=== PATIENT | male | born 1955 | race Caucasian/White ===

== ENCOUNTER → 2021-06-15 02:36 | Outpatient (CLI) | payer OTHER, SELFPAY ==
[2021-06-15 20:05] LABS: SARS-CoV-2 RNA PCR Negative
== END ==
PROVIDERS: PCP Family Medicine; Visit Provider Orthopaedic Surgery
DX: Z01.812 Encounter for preprocedural laboratory examination (principal); Z20.822 Contact with and (suspected) exposure to COVID-19
CPT/HCPCS: C9803; U0003; U0005

== ENCOUNTER 2021-06-15 09:12 | Outpatient (CLI) | payer OTHER, SELFPAY ==
--- NOTE | 2021-06-15 09:15 | ECG_ITS ---
Measurements Intervals [place] Rate: 61 P: 38 NE: 172 QRS: 46 QRSD: 100 T: 21 QT: 423 QTc: 427 Interpretive Statements SINUS RHYTHM DELAYED PRECORDIAL R/S TRANSITION BORDERLINE T WAVE ABNORMALITY- INFERIOR LEADS BASELINE ARTIFACT- I, II, III, AVR, AVL, AVF, V6 BORDERLINE ECG Electronically Signed On 06-15-2021 10:39:05 DIRECTOR ZONE by Garrett Castro D.O.
[2021-06-15 10:02] LABS: Hemoglobin A1C 7.2 % (<5.7)
[2021-06-15 10:07] LABS: Anion Gap 10 mmol/L (8-16); Blood Urea Nitrogen 18 mg/dL (9-20); Carbon Dioxide 27 mmol/L (22-30); Chloride 100 mmol/L (98-107); Estimated Glomerular Filt Rate > 60; Glucose 146 mg/dL (65-110); Sodium 137 mmol/L (137-145)
== END 2021-06-15 09:13 | disposition home or self-care (01) ==
LOC: ANHSURGERY 09:15
PROVIDERS: Anesthesiology; PCP Family Medicine; Visit Provider Orthopaedic Surgery
DX: E11.9 Type 2 diabetes mellitus without complications (principal); I10 Essential (primary) hypertension; R94.31 Abnormal electrocardiogram [ECG] [EKG]
CPT/HCPCS: 36415; 80048; 83036; 93005

== ENCOUNTER 2021-06-18 01:13 | Day surgery (SDC) | payer OTHER, SELFPAY ==
[2021-06-08 11:47] VITALS: BMI 28.6
--- NOTE | 2021-06-08 12:01 | PC.NURSE ---
Report to the Outpatient Waiting Room, entrance under the green pavilion located off [facility], at time 7:30 on date 06/18/21. OR Time: 9:30. - You and your visitor will be asked a series of questions to screen for COVID 19 for your protection. - A mask is required within the hospital. - Only one visitor is allowed at this time. Patient visitors will be guided where to wait when not with patient. Preoperative COVID Testing Requirements: No COVID Test needed if: (proof is required; if not received patient will have Rapid Test prior to entry) - Patient has received COVID Vaccine at least 14 days prior to procedure date or - Patient has positive COVID test result within last 90 days of surgery date. COVID Test needed if above criteria is not met If not COVID vaccinated a COVID test must be conducted within 72 hours of surgery and patient is asked to isolate self from time of testing until procedure. You will go to the [employer] [facility] for your COVID testing. The [employer] [facility] is located at the corner of [address] [facility]. COVID TEST 06/15 AT 9:00 You will only be called if COVID results are positive and your surgeon may reschedule your elective surgery date. Patients may have clear liquids (water, carbonated beverages, clear teas, apple juice) until 3 hours prior to surgery with a maximum of 20 ounces. - No food from midnight until time of surgery - Infants may have breast milk until 4 hours before surgery, formula 6 hours prior to surgery. - Children will be allowed to drink immediately following surgery. If applicable, please bring a bottle or sippy cup to assist with drinking. Juice, water, soda, and popsicles are readily available. For infants on formula, please bring formula the day of surgery. Pacifiers are allowed. Take the following medications with a SIP of water the morning of surgery: AMLODIPINE Medications to discontinue per physician: VITAMINS/SUPPLEMENTS Date to take last dose: 06/14/[address] POWELL Please no make-up, nail peruvian, hairspray, perfume, deodorant, or body powder the day of surgery. No jewelry (including any body piercings) or valuables the day of surgery, leave them at home. Please take a shower or bath the night before, or the morning of, surgery with an antibacterial soap. Wear comfortable, loose fitting clothing. Children are encouraged to wear pajamas. - Jewelry must be removed prior to entering the operating room. Rings and piercings that are not removed may be cut off. - The hospital will not accept responsibility for valuables. - Please leave all valuables, including medications, at home the day of surgery. If you are going home after surgery, a licensed party bus driver must drive you home. - NO public transportation without another adult. - We recommend that an adult stay with you for 24 hours following discharge. - We also recommend that you do not drive, make important decision, drink alcoholic beverages, or take any drugs that were not prescribed by your health care provider for at least 24 hours after your discharge time. For Pediatric surgeries, we recommend two adults accompany the child home (only one inside the building at this time). Follow any additional instructions given to you from your surgeon. Telephone instructions given to JEFFERY BRANDON and asked if any additional questions and then verbalized understanding. Patient advised to call surgeon office or pre surgery nurse liaison [phone] if any additional questions.
[2021-06-18] VITALS (7 sets, daily range): BP systolic 123–152; BP diastolic 79–91; PULSE 68–85; RESP 10–18; TEMP 36.1–36.3; O2SAT 93–100
--- NOTE | ~2021-06-18 | XR_ITS ---
EXAMINATION: XR surgery orthopedic DATE: 06/18/2021 14:19 INDICATION: Right foot arthrodesis TECHNIQUE: 2 views of the right ankle and hindfoot were obtained in dorsal plantar and lateral projec tions during procedure performed by Dr. Early. Radiologist was not present for the imaging or proce dure. The amount of fluoroscopy time used during this procedure was 1.1 minutes. COMPARISON: 06/09/2021 FINDINGS: Realignment osteotomy at the posterior calcaneus fixed with a pair of cannulated compression screws. Additional osteotomies in the midfoot which appear to involve the bones on either side of the navicul ocuneiform joint and across the cuboid. Midfoot arthrodesis with additional compression screws spanni ng the talonavicular and medial naviculocuneiform joints . Additional compression screw spanning the cuboid osteotomy. Alignment appears near-anatomic. No fractures identified. Osteoarthritis with mild nonuniform joint space narrowing at the ankle and subtalar joints. IMPRESSION: 1. Fluoroscopy utilized during orthopedic procedure at the right mid and hindfoot as detailed above. Correlate with procedure note for further detail. Reviewed, dictated and finalized at location A. ICAL ETCHING PROCESSOR IMPRESSION: 1. Fluoroscopy utilized during orthopedic procedure at the right mid and hindfo ot as detailed above. Correlate with procedure note for further detail.
--- NOTE | 2021-06-18 06:47 | WPDHPUPDATE1 ---
History and Physical Update Update Date/Time: 06/18/21 06:47 History and Physical has been reviewed, including an updated exam of the patient. There are NO changes in the patient's condition. Risks, benefits, and alternatives have been discussed and questions answered. Patient agrees to proceed with procedure.
[2021-06-18] MEDS: LACTATED RINGERS 1,000 ML 30 ML IV CONT ×3 (10:50→14:45)
[2021-06-18] MEDS: KETOROLAC 15 MG/ML VIAL (*BKC) IV PUSH (10:56)
[2021-06-18] MEDS: ACETAMINOPHEN 500 MG TABLET 1000 MG PO (10:57)
[2021-06-18 10:59] LABS: Glucose Point of Care 144 mg/dl (65-105)
--- NOTE | 2021-06-18 11:05 | WPDANESEPPF ---
Anes - Initial Pre Proc Eval Procedure: Operation Date: 06/18/21 12:00 Proposed Procedures p Right Midfoot Osteotomy with Arthrodesis, with Calcaneal Osteotomy - Jr Early MD Date/Time: 06/18/21 11:05 Surgeon: Jr Early MD Pre Op Diagnosis: right charcot foot,pes planus, valgus Patient Data Age: 65 Gender: M Height: 1.91 m Weight: 104 kg Allergies Allergy/AdvReac Type Severity Reaction Status Date / Time No Known Allergies Allergy Verified 06/18/21 11:06 Home Medications Medication Instructions Recorded Confirmed Type amlodipine 5 mg tablet 5 mg PO DAILY 03/05/21 06/08/21 History atorvastatin 10 mg tablet 10 mg PO DAILY 03/05/21 06/08/21 History calcium carbonate 500 mg calcium 500 mg PO DAILY 03/05/21 06/08/21 History (1,250 mg) tablet cholecalciferol (vitamin D3) 50 100 mcg PO DAILY cap 03/05/21 06/08/21 History mcg (2,000 unit) capsule dulaglutide 3 mg/0.5 mL 3 mg SUBCUT WEEKLY 03/05/21 06/08/21 History subcutaneous pen injector empagliflozin 25 mg tablet 25 mg PO DAILY 03/05/21 06/08/21 History losartan 100 mg tablet 100 mg PO DAILY 03/05/21 06/08/21 History meloxicam 7.5 mg tablet 7.5 mg PO DAILY PRN tablet 03/05/21 06/08/21 History metformin 1,000 mg tablet 500 mg PO DAILY 03/05/21 06/08/21 History multivitamin 1 tablet PO DAILY 03/05/21 06/08/21 History tadalafil 5 mg tablet 5 mg PO DAILY 03/05/21 06/08/21 History zinc 50 mg tablet 50 mg PO DAILY 03/05/21 06/08/21 History magnesium 100 mg PO DAILY 06/08/21 06/08/21 History omega-3 fatty acids-vitamin E 1 cap PO DAILY 06/08/21 06/08/21 History [Fish Oil] Laboratory Tests 06/18/21 10:53 POC Capillary Glucose 144 mg/dl H mg/dl (65-105) Patient hx anesthesia problems: none Family hx anesthesia problems: none Results Review: All pre-operative results and documents have been reviewed as part of the pre-operative evaluation. [facility] Past Medical History Medical History Charcot arthropathy of midfoot Diabetes Hyperlipidemia Hypertension Peripheral autonomic neuropathy due to diabetes mellitus Type 2 diabetes mellitus with peripheral neuropathy Surgical History Surgical History H/O shoulder surgery Left shoulder 2019 by Jossue Garcia History of colonoscopy 1999, 2004, [address] Jose Martin Azevedo History of foot operation Left Hammertoe 2009 Left Metatarsal 2013 Left bunionectomy 2014 Right foot 2016, [address] Michael May History of hernia surgery 1977, 1986, [address] Dr[address] Chand History of knee surgery Right knee 1984, 1998, 2004, 2008, [address] Stef Osorio History of knee surgery Left knee 2005, 2008, [address] J[address] Coburn and Dr[address] Stef Osorio Family History Family History Other Diabetes mellitus Social History Social History Smoking status: Never smoker Alcohol intake: never Substance use: never Substance use type: does not use Living arrangements: with family Gender identity (if verbalized by the patient): Male Spiritual care concerns: No Anes - Eval Final PreProcedure Day of Procedure 06/18/21 11:05 Patient weight: overweight Heart: regular rate and rhythm Lungs: clear to auscultation Airway: Mallampati scale class II Neurological: alert and oriented Last oral intake: >/= 8 hours ASA classification: III Emergent: no Anesthetic plan: proceed Anesthesia type and monitoring: general LMA and standard monitoring Results Review: All pre-operative results and documents have been reviewed as part of the pre-operative evaluation. Informed Consent: The patient's anesthetic plan and its attendant risks and benefits were discussed with the patient/family/POA. Questions were solicited and answers provided to
[2021-06-18] MEDS: ceFAZolin 2 GM/D5W 50 ML 2 GM/50 ML BAG IVPB (11:17)
--- NOTE | 2021-06-18 11:46 | WPDANESPNB ---
Anes - Peripheral Nerve Block Date/Time: 06/18/21 11:46 I have discussed with the patient/family/POA the placement of a peripheral nerve block for post-operative pain management, including associated risks, benefits, complications, and side effects. Alternative methods of post-operative analgesia were detailed. Questions were solicited and answers provided to the satisfaction of the patient/family/POA. Time-Out: A pre-procedural Time-Out was completed immediately before starting the procedure and confirmed: Patient Identification, Site, Procedure, Patient Position and the Availability of Requisite Equipment. Clinical Indications: Acute post-operative pain management requested by the operative surgeon. Nerve Block Insertion Note Anes-nerve block: infraclavicular, posterior fossa sciatic right and other (Saphenous right) Patient position: supine Skin prep: chlorhexidine Needle: 22 gauge, stimulating, insulated echogenic needle. Needle length: 80 mm Technique: nerve stimulation lost at (mA) Technique comment: mid 2mg fent 100mcg Injectate: bupivacaine 0.5% with epi 5 mcg/ml (20/10ml no epi) Observations: tolerated well Complications: none Procedure start time:: 111 Procedure end time:: 1115
[2021-06-18 14:50] LABS: Glucose Point of Care 173 mg/dl (65-105)
--- NOTE | 2021-06-18 14:54 | W.PM.PROC2 ---
Procedure Note - Detailed Date of Procedure 06/18/21 Pre-op Diagnosis right charcot foot,pes planus, valgus Post-op Diagnosis same Procedure Performed Right foot calcaneal osteotomy, midfoot multiple joint transverse arthrodesis. Surgeon Jr Early MD Shiftman administrative assistant office manager Anesthesia general Indications 65-year-old gentleman with right Charcot midfoot which is caused collapse of the arch and pes planovalgus deformity. Patient has pain and inability to shoe wear. Presents now for operative treatment. Description of Procedure What was done: Patient identified in the preoperative holding. Informed consent given. Operative extremity marked. Patient received intravenous antibiotics. Patient brought to the operating room where underwent general anesthetic by anesthesia team. Positioned supine on operating room table. Time-out performed confirming the patient, site of the surgery and the plan. Right foot prepped draped usual sterile surgical fashion using ChloraPrep skin solution. Foot ankle exsanguinated and a thigh tourniquet was inflated to 225 mmHg. Fluoroscopy was used to help guide the placement of the incision over the lateral posterior calcaneal tuberosity. Fifteen blade knife used to make an oblique incision. Sensory all months identified and protected. Dissection carried down the lateral aspect of the calcaneus. Osteotomy then performed from lateral to medial with a sagittal saw and completed with an osteotome. The posterior fragment was then translated medially proximally 11 mm in provisionally pinned. Image intensification continued realignment good fixation achieved with a 5.0 mm cannulated screw x2. Wound irrigated and closed with 3-0 Monocryl interrupted suture and 4-0 nylon running suture. The midfoot was then addressed. A medial longitudinal incision was made over the medial navicular an with a 15 blade knife. Soft tissue was then elevated off the medial cuneiform on the medial aspect. Tibialis anterior is protected. Soft tissue was then elevated dorsally and plantar wart. Longitudinal incision was made on the lateral aspect of the midfoot with 15 blade knife. Dissection carried down lateral side of the cuboid. Guide pins were then placed and verified with fluoroscopy to map out our osteotomy across the navicular cuneiform joints into the cuboid. Sagittal saw then used to make this osteotomy with correction of the abduction of the foot and planus. The medial aspect was then closed down both medially and plantar word. This was provisionally pinned and checked with image intensification. Fixation achieved with the 5.0 mm cannulated screws. Good fixation noted. Wound thoroughly irrigated. The tibialis anterior was reinforced with a 2.0 mm fiber tack in the navicula. Wounds thoroughly irrigated and closed with 2-0 Vicryl interrupted suture. 3-0 Monocryl interrupted suture for the subcutaneous tissue and 4-0 nylon running suture for the skin. Sterile dressing applied. The patient was then woken from anesthesia, extubated and taken to the recovery room in stable condition. All sponge, needle, instrument counts were correct at the end of the case. Implants Arthrex 5.0 mm cannulated screws x5 Estimated Blood Loss -5.0 Tourniquet Time 163 Urine Output -200.0 Drains No Packing No Pathology none sent Complications None Condition stable Disposition PACU
== END 2021-06-18 16:30 | disposition home or self-care (01) ==
PROVIDERS: PCP Family Medicine; Visit Provider Orthopaedic Surgery
PROC: (CPT 28750; principal; 2021-06-18 12:00)
DX: E11.610 Type 2 diabetes mellitus with diabetic neuropathic arthropathy (principal); M79.671 Pain in right foot; E11.42 Type 2 diabetes mellitus with diabetic polyneuropathy; M21.41 Flat foot [pes planus] (acquired), right foot; M21.071 Valgus deformity, not elsewhere classified, right ankle; I10 Essential (primary) hypertension; E78.5 Hyperlipidemia, unspecified; Z79.899 Other long term (current) drug therapy; Z79.84 Long term (current) use of oral hypoglycemic drugs
CPT/HCPCS: 28300; 28730; 36415; 80048; 82948; 83036; 93005; A9270; C1713; C9803; J0690; J1100; J1885; J2250; J2405; J2704; J3010; J7120; U0003; U0005

== ENCOUNTER → 2021-08-21 03:15 | Outpatient (CLI) | payer OTHER, SELFPAY ==
[2021-08-21 11:39] LABS: SARS-CoV-2 RNA PCR Negative
== END ==
PROVIDERS: PCP Family Medicine; Visit Provider Orthopaedic Surgery
DX: Z01.812 Encounter for preprocedural laboratory examination (principal); Z20.822 Contact with and (suspected) exposure to COVID-19
CPT/HCPCS: C9803; U0003; U0005

== ENCOUNTER 2021-08-24 00:33 | Day surgery (SDC) | payer OTHER, SELFPAY ==
[2021-08-18 10:30] VITALS: BMI 28.3
--- NOTE | 2021-08-18 10:37 | PC.NURSE ---
Report to the Outpatient Waiting Room, entrance under the green pavilion located off [facility], at time 0700 on date 08/24/21. OR Time: 0900. - You will be asked a series of questions to screen for COVID 19 for your protection. - A mask is required within the hospital. - No visitors are allowed at this time. Preoperative COVID Testing Requirements: COVID TEST 2/ AT 0930 No COVID Test needed if: (proof is required; if not received patient will have Rapid Test prior to entry) - Patient has received COVID Vaccine at least 14 days prior to procedure date or - Patient has positive COVID test result within last 90 days of surgery date. COVID Test needed if above criteria is not met If not COVID vaccinated a COVID test must be conducted within 72 hours of surgery and patient is asked to isolate self from time of testing until procedure. You will go to the [facility] for your COVID testing. The [facility] is located at the corner of [address] from [facility]. You will only be called if COVID results are positive and your surgeon may reschedule your elective surgery date. Patients may have clear liquids (water, carbonated beverages, clear teas, apple juice) until 3 hours prior to surgery with a maximum of 20 ounces. - No food from midnight until time of surgery Take the following medications with a SIP of water the morning of surgery: AMLODIPINE, CEPHALEXIN Medications to discontinue per physician: VITAMINS/SUPPLEMENTS Date to take last dose: 08/20/21 Please no make-up, nail indian, hairspray, perfume, deodorant, or body powder the day of surgery. No jewelry (including any body piercings) or valuables the day of surgery, leave them at home. Please take a shower or bath the night before, or the morning of, surgery with an antibacterial soap. Wear comfortable, loose fitting clothing. - Jewelry must be removed prior to entering the operating room. Rings and piercings that are not removed may be cut off. - The hospital will not accept responsibility for valuables. - Please leave all valuables, including medications, at home the day of surgery. If you are going home after surgery, a licensed transporter driver must drive you home. - NO public transportation without another adult. - We recommend that an adult stay with you for 24 hours following discharge. - We also recommend that you do not drive, make important decision, drink alcoholic beverages, or take any drugs that were not prescribed by your health care provider for at least 24 hours after your discharge time. Follow any additional instructions given to you from your surgeon. Telephone instructions given to JEFFERY BRANDON and asked if any additional questions and then verbalized understanding. Patient advised to call surgeon office or pre surgery nurse liaison [phone] if any additional questions.
[2021-08-24] VITALS (8 sets, daily range): BP systolic 108–125; BP diastolic 69–83; PULSE 58–99; RESP 10–16; TEMP 35.2–36.7; O2SAT 95–100
--- NOTE | ~2021-08-24 | XR_ITS ---
EXAMINATION: XR surgery orthopedic EXAM DATE: 08/24/2021 09:56 INDICATION: Right Foot Surgery Implant Graft And New Hardware . TECHNIQUE: Fluoroscopy used during right foot surgery performed by Dr. Jr Early MD. Radiol ogist was not present for the imaging or procedure. Total fluoroscopic time of 1 minute. The DAP fo r this procedure was 12 cGycm2. A total of 4 images sent to PACS from the exam. FINDINGS: Images demonstrate advanced mid foot arthritic change, 2 intact-like screws bridging tarsa l bones and metatarsophalangeal joint. Portions of 2 other screws visualized. Correlate with procedu re note. IMPRESSION: Fluoroscopy used during right foot surgery. Reviewed, dictated and finalized at location B. LEAD
--- NOTE | 2021-08-24 07:07 | WPDHPUPDATE1 ---
History and Physical Update Update Date/Time: 08/24/21 07:07 History and Physical has been reviewed, including an updated exam of the patient. There are NO changes in the patient's condition. Risks, benefits, and alternatives have been discussed and questions answered. Patient agrees to proceed with procedure.
--- NOTE | 2021-08-24 08:11 | WPDANESEPPF ---
Anes - Initial Pre Proc Eval Procedure: Operation Date: 08/24/21 09:00 Proposed Procedures p Debridement Right Foot, Graft Application, - Jr Early MD s Possible Hardware Removal Right Foot - Jr Early MD Date/Time: 08/24/21 08:11 Surgeon: Jr Early MD Pre Op Diagnosis: right diabetic ulcer Patient Data Age: 65 Gender: M Height: 1.91 m Weight: 103 kg Allergies Allergy/AdvReac Type Severity Reaction Status Date / Time No Known Allergies Allergy Verified 08/18/21 10:28 Home Medications Medication Instructions Recorded Confirmed Type amlodipine 5 mg tablet 5 mg PO DAILY 03/05/21 08/18/21 History atorvastatin 10 mg tablet 10 mg PO DAILY 03/05/21 08/18/21 History cholecalciferol (vitamin D3) 50 100 mcg PO DAILY cap 03/05/21 08/18/21 History mcg (2,000 unit) capsule dulaglutide 3 mg/0.5 mL 3 mg SUBCUT WEEKLY 03/05/21 08/18/21 History subcutaneous pen injector empagliflozin 25 mg tablet 25 mg PO DAILY 03/05/21 08/18/21 History losartan 100 mg tablet 100 mg PO DAILY 03/05/21 08/18/21 History meloxicam 7.5 mg tablet 7.5 mg PO DAILY PRN tablet 03/05/21 08/18/21 History metformin 1,000 mg tablet 500 mg PO DAILY 03/05/21 08/18/21 History multivitamin 1 tablet PO DAILY 03/05/21 08/18/21 History tadalafil 5 mg tablet 5 mg PO DAILY 03/05/21 08/18/21 History zinc 50 mg tablet 50 mg PO DAILY 03/05/21 08/18/21 History omega-3 fatty acids-vitamin E 1 cap PO DAILY 06/08/21 08/18/21 History collagenase clostridium histo. 250 1 applic TOPICAL DAILY #30 g 08/10/21 08/18/21 Rx unit/gram topical ointment silver 32 PPM topical gel 1 applic TOPICAL DAILY #28.35 g 08/10/21 08/18/21 Rx cephalexin 500 mg tablet 500 mg PO Q8H 10 Days #30 tablet 08/18/21 Rx Patient hx anesthesia problems: none Family hx anesthesia problems: none Results Review: All pre-operative results and documents have been reviewed as part of the pre-operative evaluation. [facility] Past Medical History Medical History Charcot arthropathy of midfoot Diabetes Encounter for postoperative care Hyperlipidemia Hypertension Peripheral autonomic neuropathy due to diabetes mellitus Type 2 diabetes mellitus with peripheral neuropathy Wound dehiscence, surgical Surgical History Surgical History H/O shoulder surgery Left shoulder 2019 by Jossue Garcia History of colonoscopy 1999, 2004, [address] Jose Martin Azevedo History of foot operation Left Hammertoe 2009 Left Metatarsal 2013 Left bunionectomy 2014 Right foot 2016, [address] Michael May History of hernia surgery 1977, 1986, [address] Dr[address] Chand History of knee surgery Right knee 1984, 1998, 2004, 2008, [address] Stef Osorio History of knee surgery Left knee 2005, 2008, [address] Jd Coburn and Dr[address] Stef Osorio Family History Family History Other Diabetes mellitus Social History Social History Smoking status: Never smoker Alcohol intake: never Substance use: never Substance use type: does not use Living arrangements: with family Gender identity (if verbalized by the patient): Male Spiritual care concerns: No Anes - Eval Final PreProcedure Day of Procedure 08/24/21 08:11 Patient weight: overweight Lungs: clear to auscultation Airway: Mallampati scale class II Neurological: alert and oriented Last oral intake: >/= 8 hours ASA classification: III Emergent: no Anesthetic plan: proceed Anesthesia type and monitoring: general LMA and standard monitoring Results Review: All pre-operative results and documents have been reviewed as part of the pre-operative evaluation. Informed Consent: The patient's anesthetic plan and its attendant risks and benefits were discussed with the patient/family/POA. Questions we
[2021-08-24] MEDS: KETOROLAC 15 MG/ML VIAL (*BKC) IV PUSH (08:15)
[2021-08-24] MEDS: LACTATED RINGERS 1,000 ML 30 ML IV CONT ×2 (08:15→10:20)
[2021-08-24] MEDS: ACETAMINOPHEN 500 MG TABLET 1000 MG PO (08:15)
[2021-08-24] MEDS: ceFAZolin 2 GM/D5W 50 ML 2 GM/50 ML BAG IVPB (08:28)
[2021-08-24 08:32] LABS: Glucose Point of Care 243 mg/dl (65-105)
[2021-08-24] MEDS: BUPIVACAINE HCL 0.5% PF 30 ML VIAL INFILTRATE (09:07)
[2021-08-24 10:30] LABS: Glucose Point of Care 219 mg/dl (65-105)
--- NOTE | 2021-08-24 10:36 | P.OP_ITS ---
Procedure Note - Detailed Date of Procedure 08/24/21 Pre-op Diagnosis right diabetic ulcer, postoperative wound dehiscence, midfoot arthrodesis nonunion, failed hardware. Post-op Diagnosis same Procedure Performed Debridement of right foot including muscle, 10 sq cm. Removal of deep hardware. Revision midfoot arthrodesis nonunion, application of graft. Surgeon Jr Early MD Board Winder assistant casino shift manager Anesthesia general Indications 65-year-old gentleman with diabetes and peripheral neuropathy who underwent a right midfoot arthrodesis. Procedure complicated by postoperative wound eschar now dehiscence. No drainage from the medial wound and nonhealing lateral wound. Patient presents for operative treatment of his wound dehiscence as he has failed conservative treatment with local wound care, wound packing and dressing changes. 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 Loss of fixation of the internal hardware on the medial side. 5 cm x 1 cm wound dehiscence medially. 4 cm x 1 cm wound dehiscence laterally. Description of Procedure Patient identified in the preoperative holding. Informed consent given. Operative extremity marked. Patient received intravenous antibiotics. Patient brought to the operating room where underwent general anesthetic by anesthesia team. Positioned supine on operating room table. Time-out performed confirming the patient, site of the surgery and the plan. Right foot prepped and draped usual sterile surgical fashion using ChloraPrep skin solution. Foot and Ankle exsanguinated and a calf tourniquet was inflated to 225 mmHg. Fifteen blade knife used to debride the medial wound including skin, subcutaneous tissue and muscle. All devitalized tissue sharply excised and passed off. Debridement pro ceeded to viable wound edges with good bleeding. Wound thoroughly irrigated with antibiotic solution. The medial aspect of the arthrodesis was then inspected. There was noted to be nonhealing of the bone as well as screws which were loose and broken. The screws from the medial aspect were removed. Bone was debrided with a rongeur and curettes. Thorough irrigation with antibiotic solution. Repeat fixation then performed with 4.5 mm cannulated screws. Two screws placed and verified with image intensification. Wound thoroughly irrigated once again and wound graft then applied. The deep wo und was covered with a 4 x 4 cm amniotic placental graft. This was then covered with 1 g of micro matrix particulate. The loose portions of the wound were then closed with 2 0 Prolene interrupted suture. The open proximal portion was then covered with the meshed bilayer wound matrix which was sutured into place with 3-0 Monocryl interrupted suture. Lateral wound then debrided with 15 blade knife. Skin, subcutaneous tissue and muscle sharply debrided and passed off. Good viable wound edges ensured. Wound thoroughly irrigated with antibiotic solution. The amniotic graft placed 1st followed by the micro matrix particulate. Wound covering performed with the bilayer wound matrix secured with 3-0 Monocryl interrupted suture. Sterile dressing applied. Total contact cast then applied. The patient was then woken from anesthesia, extubated and taken to the recovery room in stable condition. All sponge, needle, instrument counts were correct at the end of the case. Implants Arthrex 4.5 mm cannulated screw x2 Amnioexcel plus 4X5cm ID [id number] Micromatrix Lot [id number] Bilayer Lot [id number] Estimated Blood Loss 10 Tourniquet Time 70 Drains No Packing No Pathology none sent Complications None Condition stable Disposition
[2021-08-24] MEDS: fentaNYL CITRATE INJ (*CRX) 100 MCG/2 ML VIAL 25 MCG IV PUSH (10:40)
[2021-08-24] MEDS: oxyCODONE HCL (*CRX) 5 MG TAB IR PO (11:53)
== END 2021-08-24 12:35 | disposition home or self-care (01) ==
PROVIDERS: PCP Family Medicine; Visit Provider Orthopaedic Surgery
PROC: (CPT 11043; principal; 2021-08-24 09:00)
PROC: (CPT 11043; 2021-08-24 09:00)
DX: T81.31XA Disruption of external operation (surgical) wound, not elsewhere classified, initial encounter (principal); M96.0 Pseudarthrosis after fusion or arthrodesis; E11.621 Type 2 diabetes mellitus with foot ulcer; T84.117A Breakdown (mechanical) of internal fixation device of bone of left lower leg, initial encounter; L97.419 Non-pressure chronic ulcer of right heel and midfoot with unspecified severity; E11.610 Type 2 diabetes mellitus with diabetic neuropathic arthropathy; E11.42 Type 2 diabetes mellitus with diabetic polyneuropathy; Y83.8 Other surgical procedures as the cause of abnormal reaction of the patient, or of later complication, without mention of misadventure at the time of the procedure; E78.5 Hyperlipidemia, unspecified; I10 Essential (primary) hypertension; Z79.84 Long term (current) use of oral hypoglycemic drugs
CPT/HCPCS: 11043; 28730; 15275; 82948; A9270; C1713; C1769; C9363; C9803; J0690; J1030; J1885; J2250; J2405; J2704; J3010; J7120; Q4118; U0003; U0005

== ENCOUNTER → 2021-09-22 09:31 | Outpatient (CLI) | payer OTHER, SELFPAY ==
[2021-09-22 11:06] LABS: SARS-CoV-2 RNA PCR Negative
== END ==
PROVIDERS: PCP Family Medicine; Visit Provider Orthopaedic Surgery
DX: Z01.812 Encounter for preprocedural laboratory examination (principal); Z20.822 Contact with and (suspected) exposure to COVID-19
CPT/HCPCS: C9803; U0003; U0005

== ENCOUNTER 2021-09-24 02:09 | Day surgery (SDC) | payer OTHER, SELFPAY ==
[2021-09-22 11:27] VITALS: BMI 28.6
--- NOTE | 2021-09-22 11:39 | PC.NURSE ---
Report to the Outpatient Waiting Room, entrance under the green pavilion located off [facility], at time 0900 on date 09/24/21. OR Time: 1100. - You and your visitor will be asked a series of questions to screen for COVID 19 for your protection. - A mask is required within the hospital. One visitor will be allowed to accompany the patient into the hospital. Patients visitor will be instructed to remain with patient at all times or leave the building. We will allow the visitor to come back to the postoperative area when patient is ready. Preoperative COVID Testing Requirements: COVID TEST 09/22 AT 9:45 No COVID Test needed if: (proof is required; if not received patient will have Rapid Test prior to entry) - Patient has received COVID Vaccine at least 14 days prior to procedure date or - Patient has positive COVID test result within last 90 days of surgery date. COVID Test needed if above criteria is not met If not COVID vaccinated a COVID test must be conducted within 72 hours of surgery and patient is asked to isolate self from time of testing until procedure. You will go to the [facility] for your COVID testing. The [facility] site is located at the corner of [address] [facility]. You will only be called if COVID results are positive and your surgeon may reschedule your elective surgery date. Patients may have clear liquids (water, carbonated beverages, clear teas, apple juice) until 3 hours prior to surgery with a maximum of 20 ounces. - No food from midnight until time of surgery Take the following medications with a SIP of water the morning of surgery: AMLODIPINE, CEPHALEXIN Medications to discontinue per physician: VITAMINS/SUPPLEMENTS Date to take last dose: NO MORE UNTIL AFTER SURGERY Please no make-up, nail azeri, hairspray, perfume, deodorant, or body powder the day of surgery. No jewelry (including any body piercings) or valuables the day of surgery, leave them at home. Please take a shower or bath the night before, or the morning of, surgery with an antibacterial soap. Wear comfortable, loose fitting clothing. - Jewelry must be removed prior to entering the operating room. Rings and piercings that are not removed may be cut off. - The hospital will not accept responsibility for valuables. - Please leave all valuables, including medications, at home the day of surgery. If you are going home after surgery, a licensed local [place] truck driver must drive you home. - NO public transportation without another adult. - We recommend that an adult stay with you for 24 hours following discharge. - We also recommend that you do not drive, make important decision, drink alcoholic beverages, or take any drugs that were not prescribed by your health care provider for at least 24 hours after your discharge time. Follow any additional instructions given to you from your surgeon. Telephone instructions given to JEFFERY BRANDON and asked if any additional questions and then verbalized understanding. Patient advised to call surgeon office or pre surgery nurse liaison [phone] if any additional questions.
--- NOTE | 2021-09-23 12:42 | WPDANESEPPF ---
Anes - Initial Pre Proc Eval Procedure: Operation Date: 09/24/21 11:00 Proposed Procedures p Right Foot Debridement with Graft Application - Jr Early MD Date/Time: 09/23/21 12:42 Surgeon: Jr Early MD Pre Op Diagnosis: right foot wound dehiscence Patient Data Age: 65 Gender: M Height: 1.91 m Weight: 104 kg Allergies Allergy/AdvReac Type Severity Reaction Status Date / Time No Known Allergies Allergy Verified 09/22/21 11:25 Home Medications Medication Instructions Recorded Confirmed Type amlodipine 5 mg tablet 5 mg PO DAILY 03/05/21 09/22/21 History atorvastatin 10 mg tablet 10 mg PO DAILY 03/05/21 09/22/21 History cholecalciferol (vitamin D3) 50 100 mcg PO DAILY cap 03/05/21 09/22/21 History mcg (2,000 unit) capsule dulaglutide 3 mg/0.5 mL 3 mg SUBCUT WEEKLY 03/05/21 09/22/21 History subcutaneous pen injector empagliflozin 25 mg tablet 25 mg PO DAILY 03/05/21 09/22/21 History losartan 100 mg tablet 100 mg PO DAILY 03/05/21 09/22/21 History meloxicam 7.5 mg tablet 7.5 mg PO DAILY PRN tablet 03/05/21 09/22/21 History metformin 1,000 mg tablet 500 mg PO DAILY 03/05/21 09/22/21 History multivitamin 1 tablet PO DAILY 03/05/21 09/22/21 History tadalafil 5 mg tablet 5 mg PO DAILY 03/05/21 09/22/21 History zinc 50 mg tablet 50 mg PO DAILY 03/05/21 09/22/21 History omega-3 fatty acids-vitamin E 1 cap PO DAILY 06/08/21 09/22/21 History silver 32 PPM topical gel 1 applic TOPICAL DAILY #28.35 g 08/10/21 09/22/21 Rx cephalexin 500 mg tablet 500 mg PO Q8H 10 Days #30 tablet 08/18/21 09/22/21 Rx Patient hx anesthesia problems: none Family hx anesthesia problems: none Results Review: All pre-operative results and documents have been reviewed as part of the pre-operative evaluation. [facility] Past Medical History Medical History (Updated 09/22/21 @ 09:32 by Jr Early MD) Charcot arthropathy of midfoot Diabetes Diabetic foot ulcer associated with diabetes mellitus due to underlying condition Encounter for postoperative care Hyperlipidemia Hypertension Nonunion of arthrodesis Peripheral autonomic neuropathy due to diabetes mellitus Type 2 diabetes mellitus with peripheral neuropathy Wound dehiscence, surgical Surgical History Surgical History H/O shoulder surgery Left shoulder 2019 by Jossue Garcia History of colonoscopy 1999, 2004, [address] Jose Martin Azevedo History of foot operation Left Hammertoe 2009 Left Metatarsal 2013 Left bunionectomy 2014 Right foot 2016, [address] Michael May History of hernia surgery 1977, 1986, [address] Dr[address] Chand History of knee surgery Right knee 1984, 1998, 2004, 2008, [address] Stef Osorio History of knee surgery Left knee 2005, 2008, [address] Jd Coburn and Dr[address] Stef Osorio Family History Family History Other Diabetes mellitus Social History Social History Smoking status: Never smoker Alcohol intake: never Substance use: never Substance use type: does not use Living arrangements: with family Gender identity (if verbalized by the patient): Male Spiritual care concerns: No Anes - Eval Final PreProcedure Day of Procedure 09/23/21 12:42 Patient weight: overweight Heart: regular rate and rhythm Lungs: clear to auscultation and normal air movement Airway: Mallampati scale class II Neurological: alert and oriented Last oral intake: >/= 8 hours ASA classification: III Emergent: no Anesthetic plan: proceed Anesthesia type and monitoring: general LMA Results Review: All pre-operative results and documents have been reviewed as part of the pre-operative evaluation. Informed Consent: The patient's anesthetic plan and its attendant risks and benefits were discussed with the patient/family/POA. Questions were solicited and ans
--- NOTE | 2021-09-24 07:10 | WPDHPUPDATE1 ---
History and Physical Update Update Date/Time: 09/24/21 07:10 History and Physical has been reviewed, including an updated exam of the patient. There are NO changes in the patient's condition. Risks, benefits, and alternatives have been discussed and questions answered. Patient agrees to proceed with procedure.
[2021-09-24 09:30] VITALS: BP 143/83; PULSE 73; RESP 16; TEMP 36.2; O2SAT 98
[2021-09-24] MEDS: ACETAMINOPHEN 500 MG TABLET 1000 MG PO (09:30)
[2021-09-24] MEDS: KETOROLAC 15 MG/ML VIAL (*BKC) IV PUSH (09:30)
[2021-09-24] MEDS: LACTATED RINGERS 1,000 ML 30 ML IV CONT (09:30)
[2021-09-24 09:49] LABS: Glucose Point of Care 182 mg/dl (65-105)
[2021-09-24] MEDS: ceFAZolin 2 GM/D5W 50 ML 2 GM/50 ML BAG IVPB (09:55)
[2021-09-24 10:06] LABS: Anion Gap 10 mmol/L (8-16); Blood Urea Nitrogen 23 mg/dL (9-20); Calcium 8.9 mg/dL (8.4-10.2); Carbon Dioxide 24 mmol/L (22-30); Chloride 104 mmol/L (98-107); Estimated CRCL calculation 110 ml/min; Estimated Glomerular Filt Rate > 60; Glucose 181 mg/dL (65-110); Sodium 138 mmol/L (137-145)
[2021-09-24] MEDS: VANCOMYCIN HCL 1,000 MG VIAL 1000 MG TOPICAL (10:24)
[2021-09-24] MEDS: ceFAZolin SODIUM 1 GM VIAL IRRIGATION (10:25)
--- NOTE | 2021-09-24 10:41 | SUR.OPER ---
specimen culture given to NOLBERTO Rojo. Received in lab by Eve at [phone]
[2021-09-24 10:56] VITALS: BP 120/76; PULSE 65; RESP 16; O2SAT 95
[2021-09-24 11:20] VITALS: BP 127/87; PULSE 66; RESP 16; O2SAT 100
--- NOTE | 2021-09-24 11:21 | W.PM.PROC2 ---
Procedure Note - Detailed Date of Procedure 09/24/21 Pre-op Diagnosis Right diabetic foot ulcer, right foot wound dehiscence Post-op Diagnosis Same Procedure Performed Excisional debridement of right foot diabetic ulcer medial and lateral including bone, 4 x 4 cm. Application of graft material. Surgeon Jr aErly MD [employer] Technical Operator clinical research assistant Anesthesia MAC Indications 65-year-old gentleman with diabetes and peripheral neuropathy. Initially with wound dehiscence of the medial and lateral right foot after surgical treatment. Now with wound dehiscence complicated by diabetic ulcer. Presents for operative treatment. Findings 3 x 1 cm with 3 cm depth medial ulcer. 2 x 1 cm with 3 cm depth lateral ulcer. Description of Procedure Patient identified in the preoperative holding. Informed consent given. Operative extremity marked. Patient received intravenous antibiotics. Patient brought to the operating room where underwent intravenous sedation by anesthesia team. Positioned supine on operating room table. Time-out performed confirming the patient, site of the surgery and the plan. Medial side addressed 1st. Fifteen blade knife used to sharply excise devitalized tissue from the skin, subcutaneous tissue, muscle. Rongeur used to debride the bone. Curette used to remove larger devitalized pieces. Wound irrigated. Any remaining loose tissue was removed. Wound thoroughly irrigated once again and wound graft then applied. The deep wound was covered with a 2 x 2 cm amniotic placental graft. This was then covered with 1 g of micro matrix particulate. 2 x 2 cm prime matrix then placed into the wound. The open proximal portion was then covered with the meshed bilayer wound matrix which was sutured into place with 3-0 Monocryl interrupted suture. Lateral wound then debrided with 15 blade knife. Skin, subcutaneous tissue and muscle sharply debrided and passed off. Curette used to debride the bone. Good viable wound edges ensured. Wound thoroughly irrigated with antibiotic solution. The amniotic graft placed 1st followed by the micro matrix particulate. 2 x 2 cm prime matrix of then packed into the wound. Wound covering performed with the bilayer wound matrix secured with 3-0 Monocryl interrupted suture. Sterile dressing applied. Total contact cast then applied. The patient was then woken from anesthesia, extubated and taken to the recovery room in stable condition. All sponge, needle, instrument counts were correct at the end of the case. Implants Amnio excel amniotic tissue 3 x 3 cm, 1 g micro matrix particulate, 3 x 3 cm prime matrix, 5 x 5 cm Omnigraft Estimated Blood Loss 5 Tourniquet Time 0 Drains No Packing No Pathology Yes (Deep wound culture medial right foot, Gram stain) Complications None Condition Stable Disposition PACU
[2021-09-24 11:50] VITALS: BP 140/80; PULSE 62; RESP 18
[2021-09-24 12:14] LABS: Glucose Point of Care 162 mg/dl (65-105)
== END 2021-09-24 11:56 | disposition home or self-care (01) ==
PROVIDERS: Anesthesiology; PCP Family Medicine; Visit Provider Orthopaedic Surgery
PROC: (CPT 15275; principal; 2021-09-24 11:00)
DX: T81.31XA Disruption of external operation (surgical) wound, not elsewhere classified, initial encounter (principal); L97.519 Non-pressure chronic ulcer of other part of right foot with unspecified severity; E11.621 Type 2 diabetes mellitus with foot ulcer; E11.42 Type 2 diabetes mellitus with diabetic polyneuropathy; Z79.84 Long term (current) use of oral hypoglycemic drugs; I10 Essential (primary) hypertension; E78.5 Hyperlipidemia, unspecified; Y83.8 Other surgical procedures as the cause of abnormal reaction of the patient, or of later complication, without mention of misadventure at the time of the procedure
CPT/HCPCS: 15275; 11044; 36415; 80048; 82948; 87070; 87075; 87077; 87186; 87205; A9270; C9363; C9803; J0690; J1885; J2250; J2704; J3010; J3370; J7120; Q4118; Q4137; U0003; U0005

== ENCOUNTER 2021-10-06 07:35 | Outpatient (RCR) | payer OTHER, SELFPAY ==
[2021-08-14 09:00] VITALS: BMI 28.5
--- NOTE | 2021-08-14 12:08 | PM.PNORT ---
Progress Note: A&P Assessment and Plan (1) Wound dehiscence, surgical: Qualifiers: Encounter type: subsequent encounter Qualified Code(s): T81.31XD - Disruption of external operation (surgical) wound, not elsewhere classified, subsequent encounter Code(s): T81.31XA - Disruption of external operation (surgical) wound, not elsewhere classified, initial encounter Status: Acute Assessment and Plan: Continue daily dressing changes with silver gel and Santyl alternating. Reviewed risks of infection to report to the office immediately. Follow up in 1 week for re-evaluation. (2) Encounter for postoperative care: Code(s): Z48.89 - Encounter for other specified surgical aftercare Status: Acute (3) Diabetes: Qualifiers: Diabetes mellitus type: type 2 Diabetes mellitus termite control representative insulin use: without termite control representative use Diabetes mellitus complication status: with neurologic complications Diabetes mellitus complication detail: with autonomic neuropathy Qualified Code(s): E11.43 - Type 2 diabetes mellitus with diabetic autonomic (poly)neuropathy Code(s): E11.9 - Type 2 diabetes mellitus without complications Status: Acute Assessment and Plan: Discussed risk of worsening infection. Discussed importance of compliance with oral antibiotics. Follow-up in 1 week for re-evaluation. Subjective Subjective Date/Time Seen: 08/14/21 12:08 Interval history: Patient presents to the [place] wound clinic today 7 weeks, 6 days status post right foot arthrodesis complicated by postoperative surgical wound. No fevers, chills, night sweats, nausea, vomiting or diarrhea. Patient has been compliant with oral antibiotics. He has been alternating daily dressing changes with silver gel and Santyl to the medial foot wound. No new concerns today. Review of Systems Review of Systems: All systems reviewed & are unremarkable except as noted in HPI and below Exam Const: General: comfortable and no acute distress Resp: Effort & Inspection: normal respiratory effort GI: Inspection: non-distended GI Palp: Yes Soft to palpation and No Tenderness to palpation present (GI) Skin: Other: Medial foot wound measures 5.8 x 1.3 x 1.6 cm and lateral foot wound measures 4.0 x 1.5. Lateral foot wound closed with black scab tissue. Medial foot wound with yellow fibrinous tissue. No ability to probe to bone at this time. Objective Data Meds/Results Medications: Active Medications Generic Name Dose Route Start Last Admin Trade Name Freq PRN Reason Stop Dose Admin Collagenase 1 applic 08/14/21 08:45 Collagenase Oint 30 Gm Tube TOPICAL 11/12/21 23:55 PRN PRN Wound Care Silver Nitrate 1 applic 08/14/21 08:44 Silvergel (Elta) 45 Ml TOPICAL 11/12/21 23:55 PRN PRN Wound Care
--- NOTE | 2021-08-18 10:25 | PM.IMHP ---
H&P: HPI History of Present Illness Date/Time: 08/18/21 10:25 Chief Complaint: Right foot postoperative wound dehiscence Narrative: 9 weeks status post right midfoot osteotomy with arthrodesis. Complicated wound dehiscence at approximately 6 weeks. Has been doing dressing changes and oral antibiotics. Presents to [facility] outpatient wound clinic for re-evaluation of right foot. Postoperative wound dehiscence and necrosis. Patient states slightly better in the interim period noted decreased swelling and erythema. Denies fever chills. Review of Systems Constitutional: Constitutional: Denies fever(s) Eyes: Eyes: Denies blurry vision ENT: Reports Normal hearing present Cardiovascular: Cardiovascular: Denies chest pain and Denies dyspnea Respiratory: Respiratory: Denies dyspnea and Denies wheezing Gastrointestinal: Gastrointestinal: Denies abdominal pain Genitourinary: Genitourinary: Denies urinary urgency Musculoskeletal: Musculoskeletal: Reports as per HPI and Denies numbness Integumentary/Breasts: Skin/Breast: Denies changing lesions and Denies sores Neurologic: Reports Normal hearing present, Denies behavioral changes, Denies confusion, Denies numbness and Denies convulsions Psychiatric: Psychiatric: Denies behavioral changes, Denies confusion and Denies hallucinations Endocrine: Endocrine: Denies heat intolerance Hematologic/Lymphatic: Hematologic/Lymphatic: Denies easy bleeding Allergic/Immunologic: Allergic/Immunologic: Denies wheezing PMFSH Past Medical History Medical History Charcot arthropathy of midfoot Diabetes Encounter for postoperative care Hyperlipidemia Hypertension Peripheral autonomic neuropathy due to diabetes mellitus Type 2 diabetes mellitus with peripheral neuropathy Wound dehiscence, surgical Surgical History Surgical History H/O shoulder surgery Left shoulder 2019 by Jossue Garcia History of colonoscopy 1999, 2005, [address] Jose Martin Azevedo History of foot operation Left Hammertoe 2009 Left Metatarsal 2013 Left bunionectomy 2014 Right foot 2016, [address] Michael May History of hernia surgery 1977, 1986, [address] Dr[address] Chand History of knee surgery Right knee 1984, 1998, 2004, 2009, [address] Stef Osorio History of knee surgery Left knee 2005, 2008, [address] J[address] Coburn and Dr[address] Stef Osorio Family History Family History Other Diabetes mellitus Social History Social History Alcohol intake: never Substance use: never Substance use type: does not use Gender identity (if verbalized by the patient): Male Spiritual care concerns: No Meds Home Medications and Allergies Home Medications Medication Instructions Recorded Confirmed Type amlodipine 5 mg tablet 5 mg PO DAILY 03/05/21 08/14/21 History atorvastatin 10 mg tablet 10 mg PO DAILY 03/05/21 08/14/21 History cholecalciferol (vitamin D3) 50 100 mcg PO DAILY cap 03/05/21 08/14/21 History mcg (2,000 unit) capsule dulaglutide 3 mg/0.5 mL 3 mg SUBCUT WEEKLY 03/05/21 08/14/21 History subcutaneous pen injector empagliflozin 25 mg tablet 25 mg PO DAILY 03/05/21 08/14/21 History losartan 100 mg tablet 100 mg PO DAILY 03/05/21 08/14/21 History meloxicam 7.5 mg tablet 7.5 mg PO DAILY PRN tablet 03/05/21 08/14/21 History metformin 1,000 mg tablet 500 mg PO DAILY 03/05/21 08/14/21 History multivitamin 1 tablet PO DAILY 03/05/21 08/14/21 History tadalafil 5 mg tablet 5 mg PO DAILY 03/05/21 08/14/21 History zinc 50 mg tablet 50 mg PO DAILY 03/05/21 08/14/21 History omega-3 fatty acids-vitamin E 1 cap PO DAILY 06/08/21 08/14/21 History cephalexin 500 mg tablet 500 mg PO Q8H 10 Days #30 tablet 08/05/21 08/14/21 Rx collagenase clostridium histo. 250
--- NOTE | 2021-08-18 10:32 | W.PM.PROC2 ---
Procedure Note - Detailed Date of Procedure 08/18/21 Pre-op Diagnosis T81.31XA disruption of surgical wound, E11.9 Post-op Diagnosis same Procedure Performed Debridement right foot skin, subcutaneous tissue Surgeon Jr Early MD Manager Mechanical Maintenance none Anesthesia none Indications 65-year-old with diabetes and peripheral neuropathy with postoperative wound dehiscence of the right foot. Indicated for debridement of wound, necrosis and nonviable tissue. Description of Procedure What was done: Patient identified in the preoperative holding. Informed consent given. Operative extremity marked. Patient On oral antibiotics. Positioned supine on operating room table. Time-out performed confirming the patient, site of the surgery and the plan. right foot prepped with alcohol prep solution. Fifteen blade knife used to sharply excise skin, subcutaneous tissue from the medial incision which measured 5 x 1 cm. Eschar from the lateral incision sharply excised with 15 blade knife which measured 4 x 2 cm. Bleeding controlled with local pressure. Sterile dressing applied. The patient was then woken from anesthesia, extubated and taken to the recovery room in stable condition. All sponge, needle, instrument counts were correct at the end of the case. Estimated Blood Loss 2 Pathology none sent Complications None Condition stable Disposition other ( Home with home care)
--- NOTE | 2021-09-01 08:40 | PM.PNORT ---
Progress Note: A&P Assessment and Plan (1) Wound dehiscence, surgical: Qualifiers: Encounter type: subsequent encounter Qualified Code(s): T81.31XD - Disruption of external operation (surgical) wound, not elsewhere classified, subsequent encounter Code(s): T81.31XA - Disruption of external operation (surgical) wound, not elsewhere classified, initial encounter Status: Acute (2) Charcot arthropathy of midfoot: Code(s): M14.679 - Charcot's joint, unspecified ankle and foot Status: Acute (3) Encounter for postoperative care: Code(s): Z48.89 - Encounter for other specified surgical aftercare Status: Acute Assessment and Plan: 1 week status post revision arthrodesis right foot with debridement and application of graft. Total contact cast reapplied today for offloading and to protect the graft nonunion site. Continue nonweightbearing. Continue with edema control. Follow-up in 1 week for cast change. plan re-application total contact cast at that. Removal of silicone from the graft 2 weeks from now. (4) Nonunion of arthrodesis: Status: Acute Subjective Subjective Date/Time Seen: 09/01/21 08:40 Post Op day: 8 Principal diagnosis: Right midfoot nonunion, wound dehiscence. Interval history: Follow-up appointment [facility]. One week status post debridement of right foot, revision arthrodesis of the midfoot and application of wound graft. Patient has total contact cast placed. No interim complaints. Exam Const: General: healthy appearing; No in distress or confusion Orientation/consciousness: oriented to person, oriented to place, oriented to time and No confusion HENMT: Head: normal to inspection, normocephalic and atraumatic Eyes: Conjunctivae: conjunctivae normal Sclera: sclerae normal Neck: Neck: supple and nontender Resp: Effort & Inspection: normal respiratory effort and no audible wheezes Cardio: Rate: regular rate Rhythm: regular rhythm Skin: General skin exam: no rashes or lesions noted Neuro: General: oriented to person, oriented to place, oriented to time and No confusion Extrem: Right upper extremity: normal to inspection Left upper extremity: normal to inspection Right lower extremity: foot Details: vascular exam Details: dorsalis pedis pulse present and normal capillary refill Left lower extremity: foot Details: vascular exam Details: dorsalis pedis pulse present and normal capillary refill Other: right foot dehiscence of the medial and lateral midfoot incisions. Graft in place medially and laterally he. No open areas. Moderate swelling foot. good capillary refill in the toes. Negative Homans. Psych: Affect: normal affect Objective Data Meds/Results Medications: Active Medications Generic Name Dose Route Start Last Admin Trade Name Freq PRN Reason Stop Dose Admin Collagenase 1 applic 08/14/21 08:45 Collagenase Oint 30 Gm Tube TOPICAL 11/12/21 23:55 PRN PRN Wound Care Silver Nitrate 1 applic 08/14/21 08:44 Silvergel (Elta) 45 Ml TOPICAL 11/12/21 23:55 PRN PRN Wound Care Wound Care/Dressing Products 1 each 09/01/21 08:32 Foam Bandage (Mepilex 4x4) Bandage TOPICAL 11/29/21 23:55 PRN PRN Wound Care Fracture/Casting/Strapping Pre Procedure Consent was obtained, Procedures/risks were explained, Questions were answered, Correct patient identified and Correct side and site confirmed Episode of Care Return Visit ( Right foot) Casting Cast: Total Contact Leg Cast ( right) Modification and Status: Diabetic Application Exam of Affected Area: Color: Normal, Temp: Normal, Pulse: Normal, Blanching: Normal, Capillary Refill: Normal and Sensory Exam: Abnormal ( neuropathy) Swelling: Yes ( moderate) and Tenderness: No Skin Apperance: Intact Care: Alcohol Wipes Patient Tolerated Procedure Well: Yes
--- NOTE | 2021-09-08 08:50 | PM.PNORT ---
Progress Note: A&P Assessment and Plan (1) Wound dehiscence, surgical: Qualifiers: Encounter type: subsequent encounter Qualified Code(s): T81.31XD - Disruption of external operation (surgical) wound, not elsewhere classified, subsequent encounter Code(s): T81.31XA - Disruption of external operation (surgical) wound, not elsewhere classified, initial encounter Status: Acute (2) Charcot arthropathy of midfoot: Code(s): M14.679 - Charcot's joint, unspecified ankle and foot Status: Acute (3) Encounter for postoperative care: Code(s): Z48.89 - Encounter for other specified surgical aftercare Status: Acute Assessment and Plan: 2 weeks status post revision arthrodesis right foot with debridement and application of graft. Total contact cast reapplied today for offloading and to protect the graft nonunion site. Continue nonweightbearing. Continue with edema control. Follow-up in 1 week for cast change. Plan re-application total contact cast at that. Removal of remaining lateral silicone in 1 week. Medial silicone no longer holding in place. Mepitel one placed over both graft sites. (4) Nonunion of arthrodesis: Status: Acute Subjective Subjective Date/Time Seen: 09/08/21 08:50 Interval history: Follow-up appointment [facility]. Two weeks status post debridement of right foot, revision arthrodesis of the midfoot and application of wound graft. Patient has total contact cast placed. No interim complaints. Review of Systems Constitutional: Constitutional: Denies fever(s) Eyes: Eyes: Denies blurry vision ENT: Reports Normal hearing present Cardiovascular: Cardiovascular: Denies chest pain and Denies dyspnea Respiratory: Respiratory: Denies dyspnea and Denies wheezing Gastrointestinal: Gastrointestinal: Denies abdominal pain Genitourinary: Genitourinary: Denies urinary urgency Musculoskeletal: Musculoskeletal: Reports as per HPI and Denies numbness Integumentary/Breasts: Skin/Breast: Denies changing lesions and Denies sores Neurologic: Reports Normal hearing present, Denies behavioral changes, Denies confusion, Denies numbness and Denies convulsions Psychiatric: Psychiatric: Denies behavioral changes, Denies confusion and Denies hallucinations Endocrine: Endocrine: Denies heat intolerance Hematologic/Lymphatic: Hematologic/Lymphatic: Denies easy bleeding Allergic/Immunologic: Allergic/Immunologic: Denies wheezing Exam Const: General: healthy appearing; No in distress or confusion Orientation/consciousness: oriented to person, oriented to place, oriented to time and No confusion HENMT: Head: normal to inspection, normocephalic and atraumatic Eyes: Conjunctivae: conjunctivae normal Sclera: sclerae normal Neck: Neck: supple and nontender Resp: Effort & Inspection: normal respiratory effort and no audible wheezes Cardio: Rate: regular rate Rhythm: regular rhythm Skin: General skin exam: no rashes or lesions noted Neuro: General: oriented to person, oriented to place, oriented to time and No confusion Extrem: Right upper extremity: normal to inspection Left upper extremity: normal to inspection Right lower extremity: foot Details: vascular exam Details: dorsalis pedis pulse present and normal capillary refill Left lower extremity: foot Details: vascular exam Details: dorsalis pedis pulse present and normal capillary refill Other: right foot dehiscence of the medial and lateral midfoot incisions. Graft in place laterally. Medially, no longer holding in place, removed. No open areas. Moderate swelling foot. Good capillary refill in the toes. Negative Homans. Psych: Affect: normal affect Objective Data Meds/Results Medications: Active Medications Generic Name Dose Route Start Last Admin Trade Name Freq PRN Reason Stop Dose Admin Collagenase 1 applic 08/14/21 08:45 Collagenase Oint 30 Gm Tube T
--- NOTE | 2021-09-15 09:00 | PM.PNORT ---
Progress Note: A&P Assessment and Plan (1) Encounter for postoperative care: Code(s): Z48.89 - Encounter for other specified surgical aftercare Status: Acute Assessment and Plan: 3 weeks status post revision arthrodesis right foot with debridement and application of graft. Graft coverings removed. Silver gel/kelsie added. Total contact cast reapplied today for offloading and to protect the graft nonunion site. Continue nonweightbearing. Continue with edema control. Follow-up in 1 week in outpatient ortho clinic for new xrays and evaluation by Dr. Early. (2) Wound dehiscence, surgical: Qualifiers: Encounter type: subsequent encounter Qualified Code(s): T81.31XD - Disruption of external operation (surgical) wound, not elsewhere classified, subsequent encounter Code(s): T81.31XA - Disruption of external operation (surgical) wound, not elsewhere classified, initial encounter Status: Acute (3) Charcot arthropathy of midfoot: Code(s): M14.679 - Charcot's joint, unspecified ankle and foot Status: Acute (4) Nonunion of arthrodesis: Status: Acute Subjective Subjective Date/Time Seen: 09/15/21 12:51 Interval history: Follow-up appointment [facility]. Three weeks status post debridement of right foot, revision arthrodesis of the midfoot and application of wound graft. Patient has total contact cast placed. No interim complaints. Review of Systems Constitutional: Constitutional: Denies fever(s) Eyes: Eyes: Denies blurry vision ENT: Reports Normal hearing present Cardiovascular: Cardiovascular: Denies chest pain and Denies dyspnea Respiratory: Respiratory: Denies dyspnea and Denies wheezing Gastrointestinal: Gastrointestinal: Denies abdominal pain Genitourinary: Genitourinary: Denies urinary urgency Musculoskeletal: Musculoskeletal: Reports as per HPI and Denies numbness Integumentary/Breasts: Skin/Breast: Denies changing lesions and Denies sores Neurologic: Reports Normal hearing present, Denies behavioral changes, Denies confusion, Denies numbness and Denies convulsions Psychiatric: Psychiatric: Denies behavioral changes, Denies confusion and Denies hallucinations Endocrine: Endocrine: Denies heat intolerance Hematologic/Lymphatic: Hematologic/Lymphatic: Denies easy bleeding Allergic/Immunologic: Allergic/Immunologic: Denies wheezing Exam Const: General: healthy appearing; No in distress or confusion Orientation/consciousness: oriented to person, oriented to place, oriented to time and No confusion HENMT: Head: normal to inspection, normocephalic and atraumatic Eyes: Conjunctivae: conjunctivae normal Sclera: sclerae normal Neck: Neck: supple and nontender Resp: Effort & Inspection: normal respiratory effort and no audible wheezes Cardio: Rate: regular rate Rhythm: regular rhythm Skin: General skin exam: no rashes or lesions noted Neuro: General: oriented to person, oriented to place, oriented to time and No confusion Extrem: Right upper extremity: normal to inspection Left upper extremity: normal to inspection Right lower extremity: foot Details: vascular exam Details: dorsalis pedis pulse present and normal capillary refill Left lower extremity: foot Details: vascular exam Details: dorsalis pedis pulse present and normal capillary refill Other: right foot dehiscence of the medial and lateral midfoot incisions. Graft coverings removed. Medial wound measures 3.1x0.8x1.0cm. Lateral wound measures 2.0x1.5x1.5cm. Wound beds with some new granulation noted. Graft material still in place. Moderate swelling foot. Good capillary refill in the toes. Negative Homans. Psych: Affect: normal affect Objective Data Meds/Results Medications: Active Medications Generic Name Dose Route Start Last Admin Trade Name Freq PRN Reason Stop Dose Admin Collagenase 1 applic 08/14/21 08:45 Collagenase Oint 30 Gm
--- NOTE | 2021-09-29 08:34 | PM.PNORT ---
Progress Note: A&P Assessment and Plan (1) Diabetic foot ulcer associated with diabetes mellitus due to underlying condition: Qualifiers: Diabetic foot ulcer location: midfoot Laterality: right Non-pressure ulcer stage: with necrosis of bone Qualified Code(s): E08.621 - Diabetes mellitus due to underlying condition with foot ulcer; L97.414 - Non-pressure chronic ulcer of right heel and midfoot with necrosis of bone <Malika Benny. Ruwe, AUT[employer] PARTS SALESPERSON - Last Filed: 09/29/21 08:40> Code(s): E08.621 - Diabetes mellitus due to underlying condition with foot ulcer; L97.509 - Non-pressure chronic ulcer of other part of unspecified foot with unspecified severity <Malika M. Ruwe, [employer] SALESPERSON - Last Filed: 09/29/21 08:40> Status: Acute <Malika M. Ruwe, [employer] SALESPERSON - Last Filed: 09/29/21 08:40> (2) Wound dehiscence, surgical: Qualifiers: Encounter type: subsequent encounter Qualified Code(s): T81.31XD - Disruption of external operation (surgical) wound, not elsewhere classified, subsequent encounter <Malika M. Ruwe, [employer] SALESPERSON - Last Filed: 09/29/21 08:40> Code(s): T81.31XA - Disruption of external operation (surgical) wound, not elsewhere classified, initial encounter <Malika M. Ruwe, [employer] SALESPERSON - Last Filed: 09/29/21 08:40> Status: Acute <Malika M. Ruwe, AUT[employer] SALESPERSON - Last Filed: 09/29/21 08:40> Assessment and Plan: 5 days status post right foot debridement and application of graft. First dressing change today. Grafts covered with silicone layer and appeared to be incorporating. New sterile dressing applied. Dressing to be left in place and covered with dressing change 3 days. Next evaluation 1. Plan for removal of silicone in 2 weeks if still intact. Use of diabetic walker boot reviewed with partial weight-bearing. Continue with strict elevation. May return to work in 1 week, October 05. Intraoperative cultures still pending. Will contact patient with results if finalized. <Jr Early MD - Last Filed: 09/29/21 08:44> Subjective Subjective Date/Time Seen: 09/29/21 08:34 <ТАТЬЯНА GarciaP - Last Filed: 09/29/21 08:40> Post Op day: 5 (Right foot debridement and application graft) <Malika Napier [employer] SALESPERSON - Last Filed: 09/29/21 08:40> Principal diagnosis: right diabetic foot ulcer with wound dehiscence <Malika Napier [facility] - Last Filed: 09/29/21 08:40> Interval history: 5 days status post debridement with graft. Dressing in place. No interim complaints. <ТАТЬЯНА GarciaP - Last Filed: 09/29/21 08:40> Exam Const: General: healthy appearing; No in distress or confusion <Malika Napier [employer] SALESPERSON - Last Filed: 09/29/21 08:40> Orientation/consciousness: oriented to person, oriented to place, oriented to time and No confusion <Malika Napier [employer] SALESPERSON - Last Filed: 09/29/21 08:40> HENMT: Head: normal to inspection, normocephalic and atraumatic <Malika Napier [employer] SALESPERSON - Last Filed: 09/29/21 08:40> Eyes: Conjunctivae: conjunctivae normal <Malika Napier [employer] SALESP[employer] - Last Filed: 09/29/21 08:40> Sclera: sclerae normal <Malika Napier [facility] - Last Filed: 09/29/21 08:40> Neck: Neck: supple and nontender <Malika Napier [facility] - Last Filed: 09/29/21 08:40> Resp: Effort & Inspection: normal respiratory effort and no audible wheezes <Malika Napier [facility] - Last Filed: 09/29/21 08:40> Cardio: Rate: regular rate <Malika Napier [employer] SALESPERSON - Last Filed: 09/29/21 08:40> Rhythm: regular rhythm <Malika Napier [employer] SAL[employer] - Last Filed: 09/29/21 08:40> Skin: General skin exam: no rashes or lesions noted <Malika Napier [employer] SALESP[employer] - Last Filed: 09/29/21 08:40> Neuro: General: oriented to person, oriented to place, oriented to time and No confusion <SUZE Garcia - Last Filed: 09/29/21 08:40> Extrem: Right upper extremity: normal to inspection <SUZE Garcia - Last Filed: 09/29/21 08:40> Left upper extremity: normal to inspection <SUZE Garcia - Last Filed: 09/29/21 08:40> Rig
--- NOTE | 2021-10-06 08:44 | PM.PNORT ---
Progress Note: A&P Assessment and Plan (1) Wound dehiscence, surgical: Qualifiers: Encounter type: subsequent encounter Qualified Code(s): T81.31XD - Disruption of external operation (surgical) wound, not elsewhere classified, subsequent encounter Code(s): T81.31XA - Disruption of external operation (surgical) wound, not elsewhere classified, initial encounter Status: Acute Assessment and Plan: 1 week, 5 days status post right foot debridement and application of graft. Graft covered with silicone layer and appear to be incorporating well. New dressing placed again today. Patient to follow-up in the orthopedic outpatient clinic on October 14 at 11:00 a.m. for silicone graft for movable. Patient to continue diabetic walker boot and partial weight-bearing. Elevation. Continue oral antibiotics. Patient has 1 refill which he will continue x1 week. Subjective Subjective Date/Time Seen: 10/06/21 08:44 Interval history: One week, 5 days status post debridement and graft application to the right foot. Patient has been performing daily dressing changes since Tuesday of last week. He has been doing well with that. No new fever, chills, night sweats, nausea, vomiting or diarrhea. He is tolerating oral antibiotics well. Review of Systems Constitutional: Constitutional: Denies fever(s) Eyes: Eyes: Denies blurry vision ENT: Reports Normal hearing present Cardiovascular: Cardiovascular: Denies chest pain and Denies dyspnea Respiratory: Respiratory: Denies dyspnea and Denies wheezing Gastrointestinal: Gastrointestinal: Denies abdominal pain Genitourinary: Genitourinary: Denies urinary urgency Musculoskeletal: Musculoskeletal: Reports as per HPI and Denies numbness Integumentary/Breasts: Skin/Breast: Denies changing lesions and Denies sores Neurologic: Reports Normal hearing present, Denies behavioral changes, Denies confusion, Denies numbness and Denies convulsions Psychiatric: Psychiatric: Denies behavioral changes, Denies confusion and Denies hallucinations Endocrine: Endocrine: Denies heat intolerance Hematologic/Lymphatic: Hematologic/Lymphatic: Denies easy bleeding Allergic/Immunologic: Allergic/Immunologic: Denies wheezing Exam Const: General: healthy appearing; No in distress or confusion Orientation/consciousness: oriented to person, oriented to place, oriented to time and No confusion HENMT: Head: normal to inspection, normocephalic and atraumatic Eyes: Conjunctivae: conjunctivae normal Sclera: sclerae normal Neck: Neck: supple and nontender Resp: Effort & Inspection: normal respiratory effort and no audible wheezes Cardio: Rate: regular rate Rhythm: regular rhythm Skin: General skin exam: no rashes or lesions noted Neuro: General: oriented to person, oriented to place, oriented to time and No confusion Extrem: Right upper extremity: normal to inspection Left upper extremity: normal to inspection Right lower extremity: foot Details: vascular exam Details: dorsalis pedis pulse present and normal capillary refill Left lower extremity: foot Details: vascular exam Details: dorsalis pedis pulse present and normal capillary refill Other: right foot dehiscence of the medial and lateral midfoot incisions. Graft coverings In place. Graft material still in place. Moderate swelling foot. Good capillary refill in the toes. Negative Homans. Psych: Affect: normal affect Objective Data Meds/Results Medications: Active Medications Generic Name Dose Route Start Last Admin Trade Name Freq PRN Reason Stop Dose Admin Collagenase 1 applic 08/14/21 08:45 Collagenase Oint 30 Gm Tube TOPICAL 11/12/21 23:55 PRN PRN Wound Care Silver Nitrate 1 applic 08/14/21 08:44 Silvergel (Elta) 45 Ml TOPICAL 11/12/21 23:55 PRN PRN Wound Care Wound Care/Dressing Products 1 each 09/01/21 08:32 Foam Bandage (Mepilex 4x4) Bandage TOPICAL 11/29/21 23:55
== END 2021-11-12 23:59 | disposition home or self-care (01) ==
LOC: ANHWOC 07:35
PROVIDERS: PCP Family Medicine; Visit Provider Orthopaedic Surgery
DX: T81.31XD Disruption of external operation (surgical) wound, not elsewhere classified, subsequent encounter (principal); E11.9 Type 2 diabetes mellitus without complications
CPT/HCPCS: 11042; 29445; 99212; 99213; G0463

== ENCOUNTER 2022-07-07 07:10 | Outpatient (CLI) | payer OTHER, SELFPAY ==
--- NOTE | 2022-07-07 08:35 | ECG_ITS ---
Measurements Intervals [place] Rate: 64 P: 39 NC: 163 QRS: 31 QRSD: 105 T: 39 QT: 422 QTc: 435 Interpretive Statements SINUS RHYTHM COMPARED TO ECG 06/15/2021 09:34:59 NO SIGNIFICANT CHANGES Electronically Signed On 07-07-2022 17:55:31 BILL POSTER INSTALLER by Pam Trejo M.D.
[2022-07-07 08:39] LABS: Anion Gap 9 mmol/L (8-16); Blood Urea Nitrogen 19 mg/dL (9-20); Calcium 8.7 mg/dL (8.4-10.2); Carbon Dioxide 26 mmol/L (22-30); Chloride 103 mmol/L (98-107); Estimated Glomerular Filt Rate > 60; Glucose 240 mg/dL (65-110); Potassium 3.9 mmol/L (3.4-5.0); Sodium 138 mmol/L (137-145)
[2022-07-07 08:41] LABS: Bacteria Urine Trace /hpf; Mucus Urine Rare /lpf; WBC Urine 0-3 /hpf
[2022-07-07 08:50] LABS: Add Urine Microscopic? YES; Appearance Urine Clear (Clear); Bilirubin Urine Negative (Negative); Blood Urine Trace-Intact (Negative); Color Urine Light Yellow (Yellow); Glucose Urine UA 3+ mg/dL (Negative); Ketones Urine 2+ mg/dL (Negative); Leukocyte Esterase Ur Negative LEU/UL (Negative); Nitrate Urine Negative (Negative); Protein Urine Trace mg/dL (Negative); Urobilinogen Urine 0.2 mg/dL (<2.0)
[2022-07-07 09:07] LABS: Hemoglobin A1C 9.4 % (<5.7)
[2022-07-07 10:59] LABS: Basophils Percent Auto 0.7 % (0.2-1.2); Eosinophils Absolute Auto 0.3 K/mm3 (0-0.3); Eosinophils Percent Auto 4.5 % (0-4.4); Hematocrit 42.5 % (42.0-52.0); Hemoglobin 14.7 g/dL (14.0-18.0); Immature Granulocyte Absolute 0.02 K/mm3 (0.00-0.031); Immature Granulocyte Percent A 0.4 % (0-0.5); Lymphocytes Absolute Auto 1.48 K/mm3 (0.9-3.2); Lymphocytes Percent Auto 26.6 % (18.3-44.2); Mean Corpuscular HGB Conc 34.6 g/dl (32-36); Mean Corpuscular Hemoglobin 31.3 pg (26-34); Mean Corpuscular Volume 90.4 fl (80-100); Monocytes Absolute Auto 0.6 K/mm3 (0.1-0.6); Monocytes Percent Auto 10.6 % (2.6-8.5); Neutrophils Absolute Auto 3.2 K/mm3 (1.3-6.7); Neutrophils Percent Auto 57.2 % (45.5-73.1); Platelet Count Result 101 k/mm3 (150-375); Red Cell Distribution Width 13.1 % (11.5-14.5); White Blood Count 5.6 K/mm3 (4.5-10.0)
== END 2022-07-07 07:11 | disposition home or self-care (01) ==
PROVIDERS: PCP Family Medicine; Visit Provider Nurse Practitioner Family
DX: M16.9 Osteoarthritis of hip, unspecified (principal); I10 Essential (primary) hypertension; E11.42 Type 2 diabetes mellitus with diabetic polyneuropathy
CPT/HCPCS: 36415; 80048; 81001; 83036; 85025; 93005

== ENCOUNTER 2022-10-26 11:55 | Outpatient (CLI) | payer OTHER, SELFPAY ==
[2022-10-26 14:16] LABS: Appearance Urine Clear (Clear); Bacteria Urine None Seen /hpf; Bilirubin Urine Negative (Negative); Blood Urine Negative (Negative); Color Urine Yellow (Yellow); Glucose Urine UA 3+ mg/dL (Negative); Ketones Urine Trace mg/dL (Negative); Leukocyte Esterase Ur Negative LEU/UL (Negative); Nitrate Urine Negative (Negative); Non Pathogenic Casts 0-2; Protein Urine 1+ mg/dL (Negative); RBC Urine 0-2 /hpf (0-2); Squamous Epithelial Cell Urine None seen /hpf (Few); Urobilinogen Urine 0.2 mg/dL (<2.0); WBC Urine 0-5 /hpf; pH Urine 7.5 (5.0-9.0)
[2022-10-26 14:17] LABS: Hemoglobin A1C 5.2 % (<5.7)
[2022-10-26 14:29] LABS: Add Urine Microscopic? YES; Specific Grav Ur 1.038 (1.001-1.035)
[2022-10-26 14:30] LABS: Partial Thromboplastin Time 30.1 SECONDS (22.3-36.8)
[2022-10-26 14:39] LABS: Urine Cotinine NEGATIVE
[2022-10-26 14:51] LABS: INR 1.1; Prothrombin Time 14.1 Seconds (11.1-14.7)
== END 2022-10-26 11:56 | disposition home or self-care (01) ==
LOC: ANHSURGERY 12:01
PROVIDERS: PCP Physician Assistant; Visit Provider Orthopaedic Surgery
DX: M16.9 Osteoarthritis of hip, unspecified (principal); Z01.818 Encounter for other preprocedural examination
CPT/HCPCS: 80307; 81001; 83036; 85610; 85730; 87081

== ENCOUNTER 2022-11-10 01:05 | Day surgery (SDC) | payer OTHER, SELFPAY ==
[2022-10-26 11:55] VITALS: BP 140/88; PULSE 70; RESP 20; TEMP 36.7; O2SAT 100; BMI 29.3
--- NOTE | 2022-10-26 11:56 | PC.NURSE ---
PRE-OP INSTRUCTIONS, PLEASE READ CAREFULLY Report to the Outpatient Waiting Room, entrance under the green pavilion located off [facility], at time _0600_ on date _11/10/22_. Planned Procedure Time: _0730_. PACK A SMALL OVERNIGHT BAG AND LEAVE IN THE CAR ALONG WITH YOUR WALKER Time changes happen often and if your time is changed the preop area will call you the afternoon before. - You and your visitor will be asked to self-screen and do not enter if you have any COVID symptoms. - A mask is optional within the hospital at this time. -VISITING HOURS 8AM-8PM Patients may have clear liquids (water, carbonated beverages, clear teas, apple juice) until 3 hours (0430 AM) prior to surgery with a maximum of 20 ounces. - No food from midnight until time of surgery Take the following medications with a SIP of water the morning of surgery: _NONE_ DO NOT STOP ANY OF YOUR OTHER PRESCRIPTION MEDICATIONS PRIOR TO SURGERY ?EXCEPT THE FOLLOWING Medications to discontinue per ANESTHESIA - _VITAMINS AND SUPPLEMENTS 3 DAYS PRIOR TO SURGERY, Date to take last dose 11/06/22_ Please no make-up, nail turkish, hairspray, perfume, deodorant, or body powder the day of surgery. No jewelry (including any body piercings) or valuables the day of surgery, leave them at home. Please take a shower or bath the night before, or the morning of, surgery with an antibacterial soap. Wear comfortable, loose fitting clothing. - Jewelry must be removed prior to entering the operating room. Rings and piercings that are not removed may be cut off. - The hospital will not accept responsibility for valuables. - Please leave all valuables, including medications, at home the day of surgery. If you are going home after surgery, a licensed line haul driver must drive you home. - NO public transportation without another adult if you receive anesthesia. - We recommend that an adult stay with you for 24 hours following discharge. - We also recommend that you do not drive, make important decision, drink alcoholic beverages, or take any drugs that were not prescribed by your health care provider for at least 24 hours after your discharge time. Follow any additional instructions given to you from your surgeon. If you or anyone in your household have experienced Covid symptoms in the past week, please notify your surgeon or the nurse liaison at the phone number below for possible testing. Instructions given to _PATIENT_and asked if any additional questions and then verbalized understanding. Patient advised to call surgeon office or pre surgery nurse liaison [phone] if any additional questions.
[2022-11-10] VITALS (14 sets, daily range): BP systolic 98–146; BP diastolic 56–87; PULSE 55–74; RESP 12–18; TEMP 35.5–36.6; O2SAT 93–100
--- NOTE | ~2022-11-10 | XR_ITS ---
EXAMINATION: XR hip RT min 2V DATE: 11/10/2022 10:16 INDICATION: Total right hip arthroplasty. Postop. TECHNIQUE: 2 views of right hip were obtained. COMPARISON: Right hip radiographs 07/06/2022 FINDINGS: There is a total right hip arthroplasty in near-anatomic alignment. No fracture. There is g as in the soft tissues, consistent with recent surgery. IMPRESSION: 1. Total right hip arthroplasty in near-anatomic alignment. Reviewed, dictated and finalized at location A.
--- NOTE | 2022-11-10 06:45 | WPDANESEPPF ---
Anes - Initial Pre Proc Eval Procedure: Operation Date: 11/10/22 07:30 Proposed Procedures p Right Total Hip Arthroplasty - Sam Rai MD Date/Time: 11/10/22 06:45 Surgeon: Sam Rai MD Pre Op Diagnosis: right hip DJD Patient Data Age: 66 Gender: M Height: 1.91 m Weight: 104.4 kg Last Vital Signs Temp 36.7 C 10/26/22 11:55 Pulse 70 10/26/22 11:55 Resp 20 10/26/22 11:55 BP 140/88 10/26/22 11:55 Pulse Ox 100 10/26/22 11:55 O2 Del Method Room Air 10/26/22 11:55 Allergies Allergy/AdvReac Type Severity Reaction Status Date / Time No Known Allergies Allergy Verified 11/10/22 06:20 Home Medications Medication Instructions Recorded Confirmed Type amlodipine 5 mg tablet 5 mg PO DAILY 03/05/21 11/10/22 History atorvastatin 10 mg tablet 10 mg PO DAILY 03/05/21 11/10/22 History cholecalciferol (vitamin D3) 50 100 mcg PO DAILY 03/05/21 11/10/22 History mcg (2,000 unit) capsule empagliflozin 25 mg tablet 25 mg PO DAILY 03/05/21 11/10/22 History (Jardiance) losartan 100 mg tablet 100 mg PO DAILY 03/05/21 11/10/22 History metformin 1,000 mg tablet 500 mg PO BID 03/05/21 11/10/22 History multivitamin 1 tablet PO DAILY 03/05/21 11/10/22 History tadalafil 5 mg tablet (Cialis) 5 mg PO DAILY PRN Erectile 03/05/21 11/10/22 History Dysfunction zinc 50 mg tablet 50 mg PO DAILY 03/05/21 11/10/22 History calcium 325 mg-vit D3 12.5 1 tablet PO DAILY 10/26/22 11/10/22 History mcg-zinc 2.75 ns-nwywbb-rmtlkuhwu tablet (Citracal-D3 Maximum Plus) insulin glargine 100 unit/mL (3 25 unit subcut HS 10/26/22 11/10/22 History mL) subcutaneous pen (Lantus Solostar U-100 Insulin) tirzepatide 5 mg/0.5 mL 5 mg subcut WEEKLY 10/26/22 11/10/22 History subcutaneous pen injector (Julian) chlorhexidine gluconate 4 % 1 applic topical ONCE #237 mL 10/28/22 10/28/22 Rx topical liquid (Hibiclens) Patient hx anesthesia problems: none Family hx anesthesia problems: none Results Review: All pre-operative results and documents have been reviewed as part of the pre-operative evaluation. 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 Jose Martin Azevedo History of foot operation Left Hammertoe 2009 Left Metatarsal 2013 Left bunionectomy 2014 Right foot 2017, [address] Michael May History of hernia surgery 1977, 1986, [address] Dr[address] Chand History of knee surgery Right knee 1984, 1998, 2004, 2008, [address] Stef Osorio History of knee surgery Left knee 2005, 2008, [address] Jd Coburn and Dr[address] Stef Osorio Family History Family History Other Diabetes mellitus Social History Social History Smoking status: Never smoker Second hand tobacco smoke exposure: No Additional smoking assessment comments: PT DENIES ALL FORMS OF TOBACCO USE Alcohol intake: never Substance use: never Substance use type: does not use Living arrangements: with family Occupation/Education: occupation Gender identity (if verbalized by the patient): Male Spiritual care concerns: No Anes - Eval Final PreProcedure Day of Procedure 11/10/22 06:45 Patient weight: overweight Heart: regular rate an
[2022-11-10 06:54] LABS: Glucose Point of Care 124 mg/dl (65-105)
[2022-11-10] MEDS: ACETAMINOPHEN 500 MG TABLET 1000 MG PO (06:59)
[2022-11-10] MEDS: LACTATED RINGERS 1,000 ML 30 ML IV CONT ×3 (07:02→11:00)
[2022-11-10] MEDS: TRANEXAMIC ACID 1,000MG/ISO100 1,000 MG/100 ML BAG 200 MG IVPB (07:02)
--- NOTE | 2022-11-10 07:15 | WPDHPUPDATE1 ---
History and Physical Update Update Date/Time: 11/10/22 07:15 History and Physical has been reviewed, including an updated exam of the patient. There are NO changes in the patient's condition. Risks, benefits, and alternatives have been discussed and questions answered. Patient agrees to proceed with procedure.
[2022-11-10] MEDS: ceFAZolin 2 GM/D5W 50 ML 2 GM/50 ML BAG IVPB ×3 (07:30→23:17)
[2022-11-10] MEDS: TRANEXAMIC ACID 1,000 MG/10 ML AMPUL 1000 MG IV PUSH (09:35)
--- NOTE | 2022-11-10 09:57 | W.PM.PROC2 ---
Procedure Note - Detailed Date of Procedure 11/10/22 Pre-op Diagnosis right hip DJD Post-op Diagnosis Same Procedure Performed R ALBERTO Surgeon Sam Rai MD Anesthesia General Description of Procedure THE PATIENT WAS TAKEN TO THE OPERATING ROOM IN STABLE CONDITION AND WAS PLACED IN THE LATERAL DECUBITUS AND THE RIGHT LOWER EXTREMITY WAS PREPPED AND DRAPED IN THE STERILE FASHION. INCISION WAS MADE IN THE POSTERIOR LATERAL SIDE OF THE HIP, DOWN TO THE FASCIA LAYER. THE FASCIA WAS INCISED. THE HIP WAS EXPOSED. THE SHORT EXTERNAL ROTATORS WERE EXPOSED. THE SCIATIC NERVE WAS IDENTIFIED. INCISION WAS MADE THROUGH THE SHORT EXTERNAL ROTATORS AND THE CAPSULE OF THE HIP JOINT. THE HIP WAS DISLOCATED. AN OSTEOTOMY WAS MADE TO THE FEMORAL NECK ABOUT 1 CM PROXIMAL TO THE LESSER TROCHANTER. THE ACETABULUM WAS EXPOSED. THERE WAS SEVERE DJD SEEN. BEGINNING WITH A 44 REAMER THE ACETABULUM WAS REAMED TO 55 MM. A 55 MM TRIAL WAS PLACED IN 35 DEG OF ABDUCTION AND ANTEVERSION WAS IN ALIGNMENT WITH THE TRANS ACETABULAR LIGAMENT. THE FIT WAS EXCELLENT. THE TRIAL WAS REMOVED. A 56 MM BIOMET G7 COMPONENT WAS THEN TAPPED IN TO PLACE IN 35 DEG OF ABDUCTION AND ANTEVERSION IN ALIGNMENT WITH THE TRANSVERSE ACETABULAR LIGAMENT. THE FIT WAS EXCELLENT. THE ACETABULAR LINER WAS PLACED AND CHECKED FOR STABILITY. NEXT THE FEMUR WAS PREPARED WITH INITIAL CANAL FINDER THEN SEQUENTIAL BROACHING WITH A TAPERLOC HIP SYSTEM, UNTIL A 12 BROACH FIT WELL IN 15 OF ANTEVERSION. A +3 STANDARD OFFSET NECK WITH 36 MM HEAD TRIAL WAS PLACED. THE SHUCK TEST WAS EXCELLENT AND THE STABILITY IN FLEXION AND ROTATION WAS EXCELLENT. LEG LENGTHS WERE GROSSLY EQUAL. TRIALS WERE REMOVED. A BIOMET TAPERLOC 12 STEM WAS PLACED WITH A STANDARD OFFSET NECK. THE FIT WAS EXCELLENT IN 15 DEG OF ANTEVERSION. A +3 CERAMIC 36 MM FEMORAL HEAD WAS PLACED. THE HIP WAS TRIALED AND THE STABILITY WAS EXCELLENT WERE THE LEG LENGTHS AND THE SHUCK TEST. THE WOUND WAS IRRIGATED WITH STERILE BETADINE AND WATER FOR 3 MIN. THEN WASHED AGAIN. THE SCIATIC NERVE WAS IDENTIFIED AGAIN. THE CAPSULE AND THE EXTERNAL ROTATORS WERE APPROXIMATED WITH NUMBER 1 VICRYL. THE FASCIA WITH No 2 QUIL AND THE SUB CUTANEOUS LAYER WITH 2-0 ABSORBABLE SUTURE AND A RUNNING 3-0 SUBCUTICULAR STITCH FOR THE SKIN. DERMABOND WAS PLACED AND STERILE DRESSING WAS APPLIED. PATIENT WAS PLACED BACK ON TO THE SUPINE POSITION AND WAS EXTUBATED Estimated Blood Loss -100 Complications No immediate complications Condition Stable Disposition PACU
[2022-11-10 10:07] LABS: Glucose Point of Care 150 mg/dl (65-105)
[2022-11-10] MEDS: fentaNYL CITRATE INJ (*CRX) 100 MCG/2 ML VIAL 25 MCG IV PUSH ×6 (10:30→11:09)
--- NOTE | 2022-11-10 10:43 | SUR.PHASEI ---
1043 - dr. watts at bedside talking with pt, assessing rt leg
[2022-11-10] MEDS: HYDROmorphone HCL INJ (*CRX) 1 MG/ML SYR 0.5 MG IV PUSH ×2 (11:21→11:27)
[2022-11-10] MEDS: KETOROLAC 15 MG/ML VIAL (*BKC) IV PUSH ×3 (12:49→23:17)
--- NOTE | 2022-11-10 13:06 | ADMGEN ---
This patient, Brendan Cabrera, was admitted to [facility] Surg Room 331-01. Patient/family oriented to hospital policies and general routines including ID bracelet, bed and alarms, visiting hours, pain management, procedures, bathroom and other care routines, personal items, smoking policy, room service/diet, and visiting hours. Information on how to activate the Rapid Response Team has been discussed. Patient/Family are encouraged to report perceived risks to care and to ask questions if they do not understand what they are told or what they should do. Report from Blanca.
[2022-11-10 16:55] LABS: Glucose Point of Care 117 mg/dl (65-105)
[2022-11-10] MEDS: SENNA/DOCUSATE SODIUM TABLET 2 TAB PO (17:35)
[2022-11-10] MEDS: metFORMIN HCL 500 MG TABLET PO (17:35)
[2022-11-10] MEDS: ASPIRIN 325 MG ENTERIC TABLET PO (20:39)
[2022-11-10] MEDS: amLODIPine BESYLATE 5 MG TABLET PO (20:39)
[2022-11-10] MEDS: FAMOTIDINE 20 MG TABLET PO (20:40)
[2022-11-10] MEDS: ACETAMINOPHEN 325 MG TABLET 650 MG PO (20:44)
[2022-11-10] MEDS: INSULIN GLARGINE (*BKC) 100 UNITS/ML 25 UNITS SUB-Q (20:48)
[2022-11-10 20:51] LABS: Glucose Point of Care 172 mg/dl (65-105)
[2022-11-11 00:27] VITALS: BP 154/51; PULSE 92; RESP 16; TEMP 36.9; O2SAT 96
[2022-11-11 04:00] VITALS: BP 145/83; PULSE 92; RESP 16; TEMP 36.5; O2SAT 95
[2022-11-11] MEDS: ACETAMINOPHEN 325 MG TABLET 650 MG PO (05:59)
[2022-11-11] MEDS: KETOROLAC 15 MG/ML VIAL (*BKC) IV PUSH ×2 (06:00→12:02)
[2022-11-11] MEDS: ceFAZolin 2 GM/D5W 50 ML 2 GM/50 ML BAG IVPB (06:01)
[2022-11-11 06:10] LABS: Glucose Point of Care 140 mg/dl (65-105)
[2022-11-11 06:12] LABS: Basophils Percent Auto 0.4 % (0.2-1.2); Eosinophils Absolute Auto 0.1 K/mm3 (0-0.3); Eosinophils Percent Auto 0.6 % (0-4.4); Hematocrit 38.5 % (42.0-52.0); Hemoglobin 12.8 g/dL (14.0-18.0); Immature Granulocyte Absolute 0.04 K/mm3 (0.00-0.031); Immature Granulocyte Percent A 0.4 % (0-0.5); Immature Platelet Fraction Pct 3.5 % (0.9-11.2); Lymphocytes Absolute Auto 0.79 K/mm3 (0.9-3.2); Lymphocytes Percent Auto 8.1 % (18.3-44.2); Mean Corpuscular HGB Conc 33.2 g/dl (32-36); Mean Corpuscular Hemoglobin 30.5 pg (26-34); Mean Corpuscular Volume 91.9 fl (80-100); Monocytes Absolute Auto 1.1 K/mm3 (0.1-0.6); Monocytes Percent Auto 10.9 % (2.6-8.5); Neutrophils Absolute Auto 7.7 K/mm3 (1.3-6.7); Neutrophils Percent Auto 79.6 % (45.5-73.1); Platelet Count Result 123 k/mm3 (150-375); Red Blood Count 4.19 M/mm3 (4.6-6.20); Red Cell Distribution Width 13.5 % (11.5-14.5); White Blood Count 9.7 K/mm3 (4.5-10.0)
[2022-11-11 06:24] LABS: Anion Gap 9 mmol/L (8-16); Blood Urea Nitrogen 16 mg/dL (9-20); Calcium 8.4 mg/dL (8.4-10.2); Carbon Dioxide 23 mmol/L (22-30); Chloride 103 mmol/L (98-107); Estimated CRCL calculation 108 ml/min; Estimated Glomerular Filt Rate > 60; Glucose 122 mg/dL (65-110); Potassium 3.5 mmol/L (3.4-5.0); Sodium 135 mmol/L (137-145)
--- NOTE | 2022-11-11 08:05 | WPDANESPN ---
Anes - Prog Note Post-Op Date/Time: 11/11/22 08:05 Cardiovascular status: normal Respiratory status: normal Airway patency: baseline Mental status: baseline Post-Op hydration status: normal Vital Signs: Last Vital Signs Temp 36.5 C 11/11/22 04:00 Pulse 92 11/11/22 04:00 Resp 16 11/11/22 04:00 BP 145/83 H 11/11/22 04:00 Pulse Ox 95 11/11/22 04:00 O2 Del Method Room Air 11/10/22 13:38 O2 Flow Rate 2 11/10/22 11:45 Pain Score (VAS): 08/27 I/O: Intake & Output 11/10/22 11/11/22 11/11/22 23:59 07:59 15:59 Intake Total 290 300 Output Total 210 1100 Balance 80 -800 Laboratory Tests 11/11/22 05:33 11/11/22 05:33 11/10/22 11/10/22 11/10/22 06:50 10:04 16:49 WBC RBC Hgb Hct MCV MCH MCHC RDW Plt Count MPV Immature Gran % (Auto) Neut % (Auto) Lymph % (Auto) [place] % (Auto) Eos % (Auto) Baso % (Auto) Lymph # (Auto) [place] # (Auto) Eos # (Auto) Baso # (Auto) Abs Immat Gran (auto) Absolute Neuts (auto) Absolute Nucleated RBC Nucleated RBC % % Immature Plt Fraction Sodium Potassium Chloride Carbon Dioxide Anion Gap BUN Creatinine Estim Creat Clear Calc Estimated GFR Glucose POC Capillary Glucose 150 H 117 H Calcium Blood Type A Negative Antibody Screen Negative 11/10/22 11/11/22 11/11/22 20:46 05:33 06:07 WBC 9.7 RBC 4.19 L Hgb 12.8 L Hct 38.5 L MCV 91.9 MCH 30.5 MCHC 33.2 RDW 13.5 Plt Count 123 L MPV 10.0 Immature Gran % (Auto) 0.4 Neut % (Auto) 79.6 H Lymph % (Auto) 8.1 L [place] % (Auto) 10.9 H Eos % (Auto) 0.6 Baso % (Auto) 0.4 Lymph # (Auto) 0.79 L [place] # (Auto) 1.1 H Eos # (Auto) 0.1 Baso # (Auto) 0.0 Abs Immat Gran (auto) 0.04 H Absolute Neuts (auto) 7.7 H Absolute Nucleated RBC 0.0 Nucleated RBC % 0.0 % Immature Plt Fraction 3.5 Sodium 135 L Potassium 3.5 Chloride 103 Carbon Dioxide 23 Anion Gap 9 BUN 16 Creatinine 0.70 Estim Creat Clear Calc 108 Estimated GFR > 60 Glucose 122 H POC Capillary Glucose 172 H 140 H Calcium 8.4 Blood Type Antibody Screen Post-procedural complaints: none Patient Feedback: Patient satisfied with anesthetic care.
[2022-11-11] MEDS: FAMOTIDINE 20 MG TABLET PO (09:22)
[2022-11-11] MEDS: ASPIRIN 325 MG ENTERIC TABLET PO (09:22)
[2022-11-11] MEDS: SENNA/DOCUSATE SODIUM TABLET 2 TAB PO (09:23)
[2022-11-11] MEDS: LOSARTAN POTASSIUM 100 MG TABLET PO (09:23)
[2022-11-11] MEDS: EMPAGLIFLOZIN 25 MG TABLET PO (09:23)
[2022-11-11] MEDS: metFORMIN HCL 500 MG TABLET PO (09:23)
[2022-11-11] MEDS: ZINC SULFATE 220 MG CAPSULE PO (09:23)
[2022-11-11] MEDS: ATORVASTATIN 10 MG TABLET PO (09:23)
[2022-11-11] MEDS: CHOLECALCIFEROL 1,000 UNITS TABLET 4000 UNITS PO (09:23)
[2022-11-11] MEDS: polyethylene glycoL 3350 17 GM POWD.PACK PO (09:23)
--- NOTE | 2022-11-11 09:26 | PM.PNORT ---
Progress Note: A&P Assessment and Plan (1) S/P total hip arthroplasty: Qualifiers: Laterality: right Qualified Code(s): Z96.641 - Presence of right artificial hip joint Code(s): Z96.649 - Presence of unspecified artificial hip joint Status: Acute Assessment and Plan: POD #1 : Right ALBERTO Continue PT/OT. WBAT. Walker. HIGH FALL RISK. Continue pain control. Ice Hip. Protect skin. DVT prophylaxis with Aspirin. SCDs. Incentive Spirometry Use reviewed. Monitor Dressing. Change prior to discharge. Bowel Regimen. Dispo: Home with Home Health today pending progress with PT/OT Subjective Subjective Date/Time Seen: 11/11/22 09:26 Post Op day: 1 Principal diagnosis: Right ALBERTO Interval history: POD #1: Right ALBERTO Patient doing very well. Pain well controlled. Working well with PT/OT. No new concerns. Hopeful for dc home today. Review of Systems Review of Systems: All systems reviewed & are unremarkable except as noted in HPI and below Constitutional: Constitutional: Denies chills, Denies fever(s), Denies headache(s), Denies lethargy and Reports weakness ENT: Denies headache(s) Cardiovascular: Cardiovascular: Denies chest pain, Denies diaphoresis, Denies lightheadedness, Denies palpitations, Denies dyspnea and Denies dyspnea on exertion Respiratory: Respiratory: Denies cough, Denies dyspnea and Denies dyspnea on exertion Gastrointestinal: Gastrointestinal: Denies constipation, Denies diarrhea, Denies nausea and Denies vomiting Genitourinary: Genitourinary: Denies dysuria, Reports urinary frequency and Denies urinary hesitancy Musculoskeletal: Musculoskeletal: Reports joint swelling (Right Hip ) and Reports limited range of motion (Right Hip due to recent surgery ) Neurologic: Denies headache(s) and Reports weakness Endocrine: Endocrine: Denies palpitations Exam Const: General: comfortable and no acute distress Resp: Effort & Inspection: normal respiratory effort Cardio: Rate: regular rate Rhythm: regular rhythm GI: Inspection: non-distended Skin: General skin exam: normal color Other: Incision right hip c/d/i. Surrounding tissue without redness/warmth. Mild swelling consistent with recent surgery. No drainage. Neuro: Cognition (Neuro): normal cognition Speech: normal speech Extrem: Right lower extremity: normal to inspection, normal capillary refill, hip/thigh Details: tenderness Location: of the hip (Thigh soft ) Location: laterally and anteriorly, swelling Location: at the hip, abnormal ROM (limited consistent with recent surgery ) Details: pain with active ROM during and pain with passive ROM during and other (Incision c/d/i. ); no deformity and no unusual warmth, knee Details: normal to inspection; no tenderness and no swelling, lower leg (Negative Cornelius's Sign ) Details: normal to inspection and no edema; no tenderness, ankle (+ankle dorsiflexion/plantarflexion) Details: normal to inspection and no edema; no tenderness, no swelling and no ecchymosis and foot Details: normal capillary refill, toes with normal ROM, vascular exam Details: dorsalis pedis pulse present and motor-sensory exam Details: light-touch normal; no tenderness Objective Data Vital Signs Vital Signs: Vital Signs - 24 hr 11/10/22 10:00 11/10/22 10:15 11/10/22 10:30 Temperature 36.1 C L Pulse Rate 60 57 L 59 L Respiratory Rate 15 12 12 Blood Pressure 112/69 112/57 L 116/60 Pulse Oximetry 100 100 95 Oxygen Delivery Simple Face Mask Simple Face Mask Room Air Oxygen Flow Rate 8 8 11/10/22 10:45 11/10/22 11:00 11/10/22 11:15 Temperature Pulse Rate 58 L 63 66 Respiratory Rate 12 12 12 Blood Pressure 109/67 112/68 112/63 Pulse Oximetry 93 99 97 Oxygen Delivery Room Air Nasal Cannula Nasal Cannula Oxygen Flow Rate 2 2 11/10/22 11:30 11/10/22 11:45 11/10/22 13:38 Temperature Pulse Rate 65 65 Respiratory Rate 12 14 Blood Pressure 112/67 98/56 L Pulse Oximetry 96 99
--- NOTE | 2022-11-11 11:00 | PM.DS ---
DS: Admitting Diagnosis Discharge Date 11/11/22 Admitting Diagnosis Right ALBERTO DS: Discharge Diagnosis Discharge Diagnosis (1) S/P total hip arthroplasty: Qualifiers: Laterality: right Qualified Code(s): Z96.641 - Presence of right artificial hip joint Code(s): Z96.649 - Presence of unspecified artificial hip joint Status: Acute Assessment and Plan: POD #1 : Right ALBERTO Continue PT/OT. WBAT. Walker. HIGH FALL RISK. Continue pain control. Ice Hip. Protect skin. DVT prophylaxis with Aspirin. SCDs. Incentive Spirometry Use reviewed. Monitor Dressing. Change prior to discharge. Bowel Regimen. Dispo: Home with Home Health today pending progress with PT/OT DS: Summary Hospital Course Reason for hospitalization: Right ALBERTO Hospital Course: 66 year old male admitted s/p Right ALBERTO for postoperative medical management, pain control and mobilization with PT/OT. Patient progressed well with PT/OT. Pain and vitals remained stable throughout. The patient has been cleared to be discharged home with home health at this time. All discharge care instructions reviewed at depth. New medications reviewed. Follow up planned for 3 weeks in the outpatient orthopedic clinic with Dr. Rai. Status at Discharge Functional status at discharge: uses cane/walker Overall status at discharge: patient is progressing back to baseline Time Spent with Patient Time attestation: Total time spent providing and/or coordinating discharge services: Exam Const: General: comfortable and no acute distress Resp: Effort & Inspection: normal respiratory effort Cardio: Rate: regular rate Rhythm: regular rhythm GI: Inspection: non-distended Skin: General skin exam: normal color Other: Incision right hip c/d/i. Surrounding tissue without redness/warmth. Mild swelling consistent with recent surgery. No drainage. Neuro: Cognition (Neuro): normal cognition Speech: normal speech Extrem: Right lower extremity: normal to inspection, normal capillary refill, hip/thigh Details: tenderness Location: of the hip (Thigh soft ) Location: laterally and anteriorly, swelling Location: at the hip, abnormal ROM (limited consistent with recent surgery ) Details: pain with active ROM during and pain with passive ROM during and other (Incision c/d/i. ); no deformity and no unusual warmth, knee Details: normal to inspection; no tenderness and no swelling, lower leg (Negative Cornelius's Sign ) Details: normal to inspection and no edema; no tenderness, ankle (+ankle dorsiflexion/plantarflexion) Details: normal to inspection and no edema; no tenderness, no swelling and no ecchymosis and foot Details: normal capillary refill, toes with normal ROM, vascular exam Details: dorsalis pedis pulse present and motor-sensory exam Details: light-touch normal; no tenderness DS: Data Data Completed and Pending Labs on day of discharge: Labs from last 24 hours 11/11/22 11/11/22 11/10/22 06:07 05:33 20:46 WBC 9.7 RBC 4.19 L Hgb 12.8 L Hct 38.5 L MCV 91.9 MCH 30.5 MCHC 33.2 RDW 13.5 Plt Count 123 L MPV 10.0 Immature Gran % (Auto) 0.4 Neut % (Auto) 79.6 H Lymph % (Auto) 8.1 L [place] % (Auto) 10.9 H Eos % (Auto) 0.6 Baso % (Auto) 0.4 Lymph # (Auto) 0.79 L [place] # (Auto) 1.1 H Eos # (Auto) 0.1 Baso # (Auto) 0.0 Abs Immat Gran (auto) 0.04 H Absolute Neuts (auto) 7.7 H Absolute Nucleated RBC 0.0 Nucleated RBC % 0.0 % Immature Plt Fraction 3.5 Sodium 135 L Potassium 3.5 Chloride 103 Carbon Dioxide 23 Anion Gap 9 BUN 16 Creatinine 0.70 Estim Creat Clear Calc 108 Estimated GFR > 60 Glucose 122 H POC Capillary Glucose 140 H 172 H Calcium 8.4 11/10/22 16:49 WBC RBC Hgb Hct MCV MCH MCHC RDW Plt Count MPV Immature Gran % (Auto) Neut % (Auto) Lymph % (Auto) [place] % (Auto) Eos % (Auto) Baso % (Auto) Lymph #
[2022-11-11 11:26] LABS: Glucose Point of Care 164 mg/dl (65-105)
== END 2022-11-11 11:58 | disposition home health service (06) ==
LOC: ANHSURGERY 06:06 → ANH3MEDSUR 11-11 08:35
PROVIDERS: PCP Physician Assistant; Visit Provider Orthopaedic Surgery
PROC: (CPT 27130; principal; 2022-11-10 07:30)
DX: M16.11 Unilateral primary osteoarthritis, right hip (principal); E11.610 Type 2 diabetes mellitus with diabetic neuropathic arthropathy; I10 Essential (primary) hypertension; E78.5 Hyperlipidemia, unspecified; E11.42 Type 2 diabetes mellitus with diabetic polyneuropathy; E11.43 Type 2 diabetes mellitus with diabetic autonomic (poly)neuropathy; Z79.84 Long term (current) use of oral hypoglycemic drugs; Z79.4 Long term (current) use of insulin
CPT/HCPCS: 27130; 36415; 73502; 80048; 80307; 81001; 82948; 83036; 85025; 85055; 85610; 85730; 86850; 86900; 86901; 87081; 97110; 97116; 97161; 97165; 97530; 97535; A9270; C1776; J0171; J0690; J1170; J1815; J1885; J2250; J2270; J2405; J2704; J2710; J2795; J3010; J7120